=== PATIENT | male | born 1995 | race Caucasian/White ===

== ENCOUNTER 2020-07-30 07:45 | Emergency (ER) | payer BC, MEDICAID, SELFPAY ==
[2020-07-30 07:49] VITALS: PULSE 93; RESP 16; TEMP 36.6; O2SAT 98
--- NOTE | 2020-07-30 07:49 | CT_ITS ---
EXAMINATION: CT ABDOMEN AND PELVIS WITHOUT CONTRAST CLINICAL INFORMATION: Right flank pain. History of stones. COMPARISON: Previous CT of the abdomen and pelvis August 2017 TECHNIQUE: Multidetector volumetric imaging was performed from the superior aspect of the liver through the pubic symphysis. Sagittal and coronal reformatted images were obtained on the technologist's workstation. This CT examination was performed using dose optimization techniques as appropriate, variously including the following: *Automated exposure control *Adjustment of mA and/or kV according to patient size (this includes techniques or standardized protocols for targeted exams where dose is matched to indication/reason for exam; i.e. extremities or head) *Use of iterative reconstruction technique DLP: 409 mGy-cm FINDINGS: LUNG BASES: The visualized lung bases are unremarkable. LIVER, GALLBLADDER, AND BILIARY TREE: The liver is normal in size, shape, and attenuation. No focal hepatic lesion or biliary ductal dilatation is present. The gallbladder is unremarkable with no evidence of radiopaque gallstones, gallbladder wall thickening, or obvious pericholecystic inflammatory changes. PANCREAS: Unremarkable. SPLEEN: Unremarkable. ADRENAL GLANDS: Unremarkable. KIDNEYS AND URETERS: There is a 2 mm stone in the upper pole of the right kidney. The kidneys are otherwise normal. No hydronephrosis, ureteral dilatation or ureteral stone is seen. BLADDER: There is a small 2 mm calcification in the bladder along the left lateral posterior bladder wall axial image 86 series 3, coronal reconstructed image 41 and sagittal reconstructed image 41 this is new from previous exam. It is uncertain whether this could represent a small bladder stone. GASTROINTESTINAL TRACT: There is stool seen throughout the colon questionable for constipation. There are no dilated loops of bowel to suggest obstruction. The stomach and appendix are unremarkable. ABDOMINAL WALL: No significant hernia is appreciated. LYMPH NODES: Normal. VASCULAR: Unremarkable. PELVIC VISCERA: Unremarkable. OSSEOUS STRUCTURES: There is degenerative disc disease at L5-S1. CT/CT abdomen pelvis wo con IMPRESSION: Small nonobstructing right renal stone. Question small bladder stone. No hydronephrosis, ureteral dilatation or ureteral stone seen.
--- NOTE | 2020-07-30 07:57 | ED_ITS ---
HPI - Abdominal Pain General Chief Complaint: Abdominal Pain Stated Complaint: FLANK PAIN,? KIDNEY STONE FEELS THE SAME PER PT Time Seen by Provider: 07/30/20 07:48 Source: patient, EMS and old records reviewed Mode of arrival: EMS Limitations: no limitations History of Present Illness MD elicited complaint: flank pain Pertinent past history: kidney stones Onset (ago): hour(s) (3) Pain Consistency: constant Location: R flank Quality: stabbing Radiation: RLQ Migration to: no migration Exacerbating factors: vomiting and movement Relieving factors: nothing Context: history of similar episodes Associated symptoms: nausea and vomiting Related Data Previous Rx's Medication Instructions Recorded hydrocodone-acetaminophen 1 tab PO Q6H PRN #8 tab 07/30/20 ibuprofen 600 mg PO Q6H PRN #30 tab 07/30/20 ondansetron 4 mg PO Q8H PRN #20 tab 07/30/20 Allergies Allergy/AdvReac Type Severity Reaction Status Date / Time Sulfa (Sulfonamide Allergy Mild RASH Unverified 03/29/20 19:27 Antibiotics) [SULFA (SULFONAMIDE ANTIBIOTICS)] Review of Systems Review of Systems Constitutional : No Weight loss, No Fever, No Chills ENT/Mouth : No sore throat, No Rhinorrhea Eyes: No Swelling, No Redness Cardiovascular : No Chest Pain, No SOB, NoEdema Respiratory : No Cough, No Sputum, No Wheezing Gastrointestinal : Positive Nausea, Positive Vomiting, no Diarrhea, positive abdominal Pain, No Hematochezia, No Melena Genitourinary : pos Dysuria, No Urinary Frequency, No Hematuria, No Urgency Musculoskeletal : No joint pain, No Myalgias, No Joint Swelling Skin : No Skin Lesions, No rash Neuro : No Weakness, No Numbness, No Dizziness, No Headache Psych : No Anxiety/Panic, No Depression Heme/Lymph: No Bruising, No Lymphadenopathy Endocrine : No Polyuria, No Polydipsia All other systems reviewed and are negative. Physical Exam Vital Signs: Vital Signs: Last Vital Signs Temp 98.7 F 07/30/20 11:53 Pulse 54 07/30/20 11:53 Resp 16 07/30/20 11:53 BP 107/52 L 07/30/20 11:53 Pulse Ox 97 07/30/20 11:53 Body Mass Index 1.6 Appearance: Alert. Oriented X3. Tearful, crying, mild distress appears in pain Eyes: Pupils equal, round and reactive to light. ENT: Pharynx normal. Neck: Normal inspection. Neck supple. CVS: Normal heart rate and rhythm. Pulses normal. Respiratory: No respiratory distress. Breath sounds normal. Abdomen: Soft and moderate R sided abdominal pain Skin: Skin warm and diaphoretic. pale skin color. Normal skin turgor. Extremities: No lower extremity edema. No calf ttp Neuro: Oriented X 3. No motor deficit. No sensory deficit. Course Course Course Narrative: feels much better, passed stone, stable for DC MDM - Abdominal Pain MDM Narrative Medical decision making narrative: 24 yo male with hx of seizures, renal colic - here with R flank pain concerning for ureterolithiasis - at this time will need labs, CT scan, IVF, IV toradol and IV dilaudid for pain, dispo per results and findings. Lab Data Result diagrams: 07/30/20 07:59 07/30/20 09:54 Labs: Lab Results 07/30/20 07/30/20 07/30/20 Range/Units 07:59 07:59 09:54 WBC 10.7 (4.8-10.8) X10*3/uL RBC 5.28 (4.60-5.80) X10*6/uL Hgb 14.9 (14.0-18.0) g/dl Hct 43.6 (42-52) % MCV 82.6 (80-98) fL MCH 28.2 (27.0-33.0) pg MCHC 34.2 (31.0-36.0) g/dl RDW 12.9 (11.0-16.0) % Plt Count 200 (160-400) X10*3/uL MPV 9.4 (9.4-12.4) fL Immature Gran % (Auto) 0.2 (0.0-0.4) % Neut % (Auto) 79.6 H (45-73) % Lymph % (Auto) 12.3 L (20-40) % [place] % (Auto) 7.1 (2-11) % Eos % (Auto) 0.5 (0-4) % Baso % (Auto) 0.3 (0-2) % Lymph # (Auto) 1.3 (1.2-4.9) X10*3/uL [place] # (Auto) 0.8 (0.1-1.2) X10*3/uL Eos # (Auto) 0.1 (0.0-0.4) X10*3/uL Baso # (Auto) 0.0 (0.0-0.2) X10*3/uL Abs Immat Gran (auto) 0.02 (0.00-0.03) X10*3/uL Absolute Neuts (auto) 8.5 H (2.0-8.3) X10*3/uL Absolute Nucleated RBC 0.000 (0.0-0.012) X10*3/uL Nucleated RBC % (auto) 0.0 (0.0-0.2) /100WBC Sodium Cancelled 139 Potassium Cancelled 4.1 Chloride Cancelled 104 Carbon Dioxide Cancelled 27 Anion Gap Cancelled 12 BUN Cancelled 10 Creatinine Cancelled 0.80 Estim Creat Clear Calc Cancelled 9.8 Estimated GFR Cancelled > 60 Random Glucose Cancelled 93 Calcium Cancelled 9.0 Magnesium Cancelled 1.9 Total Bilirubin Cancelled 0.2 Direct Bilirubin Cancelled 0.2 AST Cancelled 21 ALT Cancelled 21 Alkaline Phosphatase Cancelled 61 Total Protein Cancelled 6.7 Albumin Cancelled 4.2 Lipase Cancelled 8 Urine Color Urine Appearance Urine pH (5.0-8.0) Ur Specific [place] (1.005-1.025) Urine Protein (NEG-TRACE) MG/DL Urine Glucose (UA) (NEG) MG/DL Urine Ketones (NEG) MG/DL Urine Blood (NEG) Urine Nitrite (NEG) Ur Leukocyte Esterase (NEG) 07/30/20 Range/Units 12:00 WBC (4.8-10.8) X10*3/uL RBC (4.60-5.80) X10*6/uL Hgb (14.0-18.0) g/dl Hct (42-52) % MCV (80-98) fL MCH (27.0-33.0) pg MCHC (31.0-36.0) g/dl RDW (11.0-16.0) % Plt Count (160-400) X10*3/uL MPV (9.4-12.4) fL Immature Gran % (Auto) (0.0-0.4) % Neut % (Auto) (45-73) % Lymph % (Auto) (20-40) % [place] % (Auto) (2-11) % Eos % (Auto) (0-4) % Baso % (Auto) (0-2) % Lymph # (Auto) (1.2-4.9) X10*3/uL [place] # (Auto) (0.1-1.2) X10*3/uL Eos # (Auto) (0.0-0.4) X10*3/uL Baso # (Auto) (0.0-0.2) X10*3/uL Abs Immat Gran (auto) (0.00-0.03) X10*3/uL Absolute Neuts (auto) (2.0-8.3) X10*3/uL Absolute Nucleated RBC (0.0-0.012) X10*3/uL Nucleated RBC % (auto) (0.0-0.2) /100WBC Sodium Potassium Chloride Carbon Dioxide Anion Gap BUN Creatinine Estim Creat Clear Calc Estimated GFR Random Glucose Calcium Magnesium Total Bilirubin Direct Bilirubin AST ALT Alkaline Phosphatase Total Protein Albumin Lipase Urine Color YELLOW Urine Appearance HAZY Urine pH 8.0 (5.0-8.0) Ur Specific [place] 1.020 (1.005-1.025) Urine Protein TRACE (NEG-TRACE) MG/DL Urine Glucose (UA) NEG (NEG) MG/DL Urine Ketones 40 (NEG) MG/DL Urine Blood 2+ H (NEG) Urine Nitrite NEG (NEG) Ur Leukocyte Esterase NEG (NEG) Discharge Plan Discharge Clinical Impression: Calculus of kidney Patient Disposition: Home, Self-Care Instructions: Kidney Stones (ED) Additional Instructions: return to ED for any worsening symptoms or concerns YOU PASSED A STONE IT IS IN YOUR BLADDER, THERE IS A ANOTHER SMALL STONE IN THE RIGHT KIDNEY THIS MAY CAUSE PAIN AND PASS IN THE FUTURE please follow up with your urologist as needed Prescriptions: New hydrocodone-acetaminophen 5-325 mg tablet 1 tab PO Q6H PRN (Reason: pain) Qty: 8 RF: 0 ibuprofen 600 mg tablet 600 mg PO Q6H PRN (Reason: pain) Qty: 30 RF: 0 ondansetron 4 mg tablet,disintegrating 4 mg PO Q8H PRN (Reason: nausea and vomiting) Qty: 20 RF: 0 PMFSH Past Medical History Attestation statement: The following information was validated with the patient. Medical History Kidney stones Social History Social History (Updated 07/30/20 @ 07:58 by Bette Reeves DO) Alcohol intake: never Smoking Status: Current every day smoker Use of substances other than those prescribed or required for medical reasons: No Advance Directives: No Advance Directives Information Provided: No
[2020-07-30 08:03] VITALS: RESP 16
[2020-07-30] MEDS: Ketorolac Tromethamine 30 MG/ML VIAL IVPUSH (08:03)
[2020-07-30] MEDS: HYDROmorphone HCl 1 MG/ML SYRINGE IVPUSH (08:03)
[2020-07-30] MEDS: ondansetron HCL 4 MG/2 ML VIAL IVPUSH (08:03)
[2020-07-30] MEDS: 0.9 % Sodium Chloride 1,000 ML 999 ML IVCONT (08:04)
[2020-07-30 08:07] LABS: MANUAL DIFF FLAG NO
[2020-07-30 08:15] LABS: Basophils Percent Auto 0.3 % (0-2); Eosinophils Absolute Auto 0.1 X10*3/uL (0.0-0.4); Eosinophils Percent Auto 0.5 % (0-4); Hematocrit 43.6 % (42-52); Hemoglobin 14.9 g/dl (14.0-18.0); Imm Gran Abs Auto 0.02 X10*3/uL (0.00-0.03); Imm Gran Pct Auto 0.2 % (0.0-0.4); Lymphocytes Absolute Auto 1.3 X10*3/uL (1.2-4.9); Lymphocytes Percent Auto 12.3 % (20-40); Mean Corpuscular HGB Conc 34.2 g/dl (31.0-36.0); Mean Corpuscular Hemoglobin 28.2 pg (27.0-33.0); Mean Corpuscular Volume 82.6 fL (80-98); Mean Platelet Volume 9.4 fL (9.4-12.4); Monocytes Absolute Auto 0.8 X10*3/uL (0.1-1.2); Monocytes Percent Auto 7.1 % (2-11); Neutrophils Absolute Auto 8.5 X10*3/uL (2.0-8.3); Neutrophils Percent Auto 79.6 % (45-73); Platelet Count 200 X10*3/uL (160-400); Red Blood Count 5.28 X10*6/uL (4.60-5.80); Red Cell Distribution Width 12.9 % (11.0-16.0); White Blood Count 10.7 X10*3/uL (4.8-10.8)
[2020-07-30 10:01] VITALS: BP 108/43; PULSE 72; RESP 16; TEMP 37.4; O2SAT 95
[2020-07-30 10:34] LABS: Alanine Aminotransferase 21 U/L (0-40); Albumin Level 4.2 g/dL (3.5-5.0); Alkaline Phosphatase 61 U/L (39-117); Anion Gap 12 (12-20); Aspartate Amino Transferase 21 U/L (5-37); Bilirubin Direct 0.2 mg/dL (0.0-0.5); Bilirubin Total 0.2 mg/dL (0.0-1.0); Blood Urea Nitrogen 10 mg/dL (9-16); Carbon Dioxide 27 mmol/L (22-29); Chloride 104 mmol/L (96-108); Creatinine Clr Calc Pharmacy 9.8; Estimated Glomerular Filt Rate > 60; Glucose Random 93 mg/dL (60-115); Lipase 8 U/L (8-78); Magnesium 1.9 mg/dL (1.6-2.6); Potassium 4.1 mmol/l (3.3-5.1); Sodium 139 mmol/L (135-145); Total Protein 6.7 g/dL (6.5-8.0)
[2020-07-30 11:53] VITALS: BP 107/52; PULSE 54; RESP 16; TEMP 37.1; O2SAT 97
[2020-07-30 12:00] VITALS: RESP 16
[2020-07-30 12:08] LABS: Glucose Urine UA NEG (NEG); Leukocyte Esterase Urine NEG (NEG); Nitrite Urine NEG (NEG); Urine Blood 2+ (NEG); Urine Ketones 40 MG/DL (NEG); Urine Protein TRACE MG/DL (NEG-TRACE)
[2020-07-30 12:10] LABS: Appearance Urine HAZY; Color Urine YELLOW
[2020-07-30 12:17] LABS: RBC Urine 30-49 /HPF (0)
[2020-07-30 12:18] LABS: Bacteria Urine TRACE /LPF; Mucus Urine 2+ /LPF; Squamous Epithelial Cell Urine 1+ /LPF; Triple Phosphate Crystal Urine 1+ /LPF
== END 2020-07-30 12:44 | disposition home or self-care (01) ==
PROVIDERS: Emergency Provider Emergency Medicine
DX: N20.0 Calculus of kidney (principal)
CPT/HCPCS: 36415; 74176; 80048; 80076; 81001; 83690; 83735; 85025; 96361; 96374; 96375; 99284; 99285; J1170; J1885; J2405

== ENCOUNTER 2020-08-16 06:28 | Emergency (ER) | payer BC, MEDICAID, SELFPAY ==
[2020-08-16 08:08] VITALS: BP 114/76; PULSE 80; RESP 16; TEMP 36.7; O2SAT 96; BMI 23.7
--- NOTE | 2020-08-16 09:49 | ED.BACK ---
HPI - Back Pain/Injury General Chief Complaint: Back Pain/Injury Stated Complaint: Abdominal Pain Time Seen by Provider: 08/16/20 09:48 Related Data Previous Rx's Medication Instructions Recorded hydrocodone-acetaminophen 1 tab PO Q6H PRN #8 tab 07/30/20 ibuprofen 600 mg PO Q6H PRN #30 tab 07/30/20 ondansetron 4 mg PO Q8H PRN #20 tab 07/30/20 Allergies Allergy/AdvReac Type Severity Reaction Status Date / Time Sulfa (Sulfonamide Allergy Mild RASH Verified 08/16/20 08:08 Antibiotics) [SULFA (SULFONAMIDE ANTIBIOTICS)] [facility] Past Medical History Medical History Kidney stones Social History Social History (Updated 07/30/20 @ 07:58 by Bette Reeves DO) Alcohol intake: never Smoking Status: Current every day smoker Use of substances other than those prescribed or required for medical reasons: No Advance Directives: No Advance Directives Information Provided: No Physical Exam Vital Signs: Vital Signs: Last Vital Signs Temp 98.1 F 08/16/20 08:08 Pulse 80 08/16/20 08:08 Resp 16 08/16/20 08:08 BP 114/76 08/16/20 08:08 Pulse Ox 96 08/16/20 08:08 Body Mass Index 23.7 Course Course Course Narrative: 0945-This is a rapid medical exam. 24 yo male with past medical history of renal colic here with right sided flank pain since 0500. Feels similar to previous stones. Ordered labs, UA. Deferred additional HPI, ROS and PE to primary provider . Discharge Plan Discharge Prescriptions: No Action hydrocodone-acetaminophen 5-325 mg tablet 1 tab PO Q6H PRN (Reason: pain) Qty: 8 RF: 0 ibuprofen 600 mg tablet 600 mg PO Q6H PRN (Reason: pain) Qty: 30 RF: 0 ondansetron 4 mg tablet,disintegrating 4 mg PO Q8H PRN (Reason: nausea and vomiting) Qty: 20 RF: 0
--- NOTE | 2020-08-16 10:32 | ED_ITS ---
HPI - General Adult General Chief complaint: Back Pain/Injury Stated complaint: Abdominal Pain Time Seen by Provider: 08/16/20 09:48 Source: patient and EMS Mode of arrival: EMS Limitations: no limitations History of Present Illness HPI narrative: 24-year-old male with history of kidney stone presented with abdominal pain similar to his kidney stone, patient is crying in bed patient is refusing to get an IV access, refusing to give blood, patient also refused physical exam, patient will leave unhappy plea, I spoke with the patient try to make him understand that it is important to get blood in order to get a d efinitive diagnosis and give medications through the IV patient is still refusing the care patient left without physical exam or complete evaluation. Related Data Previous Rx's Medication Instructions Recorded hydrocodone-acetaminophen 1 tab PO Q6H PRN #8 tab 07/30/20 ibuprofen 600 mg PO Q6H PRN #30 tab 07/30/20 ondansetron 4 mg PO Q8H PRN #20 tab 07/30/20 Allergies Allergy/AdvReac Type Severity Reaction Status Date / Time Sulfa (Sulfonamide Allergy Mild RASH Verified 08/16/20 08:08 Antibiotics) [SULFA (SULFONAMIDE ANTIBIOTICS)] Review of Systems Review of Systems: Patient refused physical exam and given history. [facility] Past Medical History Medical History Kidney stones Social History Social History (Updated 07/30/20 @ 07:58 by Bette Reeves DO) Alcohol intake: never Smoking Status: Current every day smoker Use of substances other than those prescribed or required for medical reasons: No Advance Directives: No Advance Directives Information Provided: No Physical Exam Vital Signs: Vital Signs: Last Vital Signs Temp 98.1 F 08/16/20 08:08 Pulse 80 08/16/20 08:08 Resp 16 08/16/20 08:08 BP 114/76 08/16/20 08:08 Pulse Ox 96 08/16/20 08:08 Body Mass Index 23.7 Vital signs have been reviewed as normal and appeared to be correct. Blood pressure normal. Heart rate normal. Respiration rate normal. Temperature normal. Oxygen saturation normal. Patient refused physical exam Course Course Course Narrative: Patient refused medical care today because he does not want to given blood or get an IV access, patient will walk out without complete evaluation and assessment. Discharge Plan Discharge Clinical Impression: Abdominal pain Patient Disposition: Left Without Being Seen Prescriptions: No Action hydrocodone-acetaminophen 5-325 mg tablet 1 tab PO Q6H PRN (Reason: pain) Qty: 8 RF: 0 ibuprofen 600 mg tablet 600 mg PO Q6H PRN (Reason: pain) Qty: 30 RF: 0 ondansetron 4 mg tablet,disintegrating 4 mg PO Q8H PRN (Reason: nausea and vomiting) Qty: 20 RF: 0
[2020-08-16 10:35] LABS: Glucose Urine UA NEG (NEG); Leukocyte Esterase Urine NEG (NEG); Nitrite Urine NEG (NEG); Specific Gravity - Urine 1.015 (1.005-1.025); Urine Blood NEG (NEG); Urine Ketones NEG (NEG); Urine Protein NEG (NEG-TRACE)
--- NOTE | 2020-08-16 10:35 | PC.NURSE ---
pt unhappy re: need for lab draws, requests iv and labs taken from hand, rn established iv access rt hand, 1 blue tube of blood obtained pt insisted iv be removed, pt adamant he does not want blood drawn, dr linares at bedside speaking with pt, decision to cancel iv and obtain remaining blood to be drawn by tech and use po fluids, pt becomes upset doesn't want blood drawn gathers belongings and leaves dept.
[2020-08-16 10:38] LABS: Appearance Urine HAZY; Color Urine YELLOW
== END 2020-08-16 11:11 | disposition left against medical advice (07) ==
PROVIDERS: Nurse Practitioner Family; Emergency Provider Emergency Medicine
DX: R10.9 Unspecified abdominal pain (principal); M54.5 Low back pain; F17.200 Nicotine dependence, unspecified, uncomplicated; Z71.6 Tobacco abuse counseling; Z79.899 Other long term (current) drug therapy
CPT/HCPCS: 36415; 81003; 99283

== ENCOUNTER 2023-09-10 16:55 | Emergency (ER) | payer BC, MEDICAID, SELFPAY ==
[2023-09-10 17:02] VITALS: BP 119/83; PULSE 103; RESP 18; TEMP 36.8; O2SAT 96; BMI 34.3
--- NOTE | 2023-09-10 17:02 | ED.GENADULT ---
HPI - General Adult General Chief complaint: GI Bleed Stated complaint: hemorrhoid Time Seen by Provider: 09/10/23 18:13 Source: patient Mode of arrival: ambulatory Limitations: no limitations History of Present Illness HPI narrative: 27-year-old male presents with concerns that his hemorrhoid maybe bleeding, patient reports he has had hemorrhoid for about a year, recently he has been slightly constipated and passing hard stool, straining has caused his hemorrhoidal bleed he thinks, he reports he got a little bit scared when he saw a lot of blood in the toilet seat earlier today. Patient does not have a bleeding disorder. Not on blood thinners. He reports at times the hemorrhoid is painful. Denies fevers, chills, numbness, tingling, headache, vision changes, dizziness, weakness, nausea, vomiting, abdominal pain, chest pain or shortness of breath. Related Data Previous Rx's Medication Instructions Recorded hydrocodone 5 mg-acetaminophen 325 1 tab PO Q6H PRN pain #8 tabs 07/30/20 mg tablet ibuprofen 600 mg tablet 600 mg PO Q6H PRN pain #30 tabs 07/30/20 ondansetron 4 mg disintegrating 4 mg PO Q8H PRN nausea and 07/30/20 tablet vomiting #20 tabs docusate sodium 100 mg capsule 100 mg PO BID #20 caps 09/10/23 (Colace) polyethylene glycol 3350 17 17 g PO BID #238 grams 09/10/23 gram/dose oral powder (Miralax) pramoxine 1 % topical foam 1 appl [place] BID #15 grams 09/10/23 (Proctofoam) sennosides 8.6 mg tablet (senna) 8.6 mg PO BEDTIME #14 tabs 09/10/23 Allergies Allergy/AdvReac Type Severity Reaction Status Date / Time Sulfa (Sulfonamide Allergy Mild RASH Verified 08/16/20 08:08 Antibiotics) [SULFA (SULFONAMIDE ANTIBIOTICS)] Review of Systems Review of Systems: Yes all other systems are reviewed and are negative PMFSH Past Medical History Attestation statement: The following information was validated with the patient. Source: old records reviewed and nursing notes reviewed Medical History Kidney stones Social History Social History Alcohol intake: never Advance Directives: No Advance Directives Information Provided: No Physical Exam ED Vital Signs: Vital Signs - 24 hr 09/10/23 17:02 Temperature 98.3 F Pulse Rate 103 H Respiratory Rate 18 Blood Pressure 119/83 Pulse Oximetry 96 Oxygen Delivery Method Room Air BMI result Body Mass Index 34.3 vss slightly tachycardic however anxious Appearance: Alert.? Oriented X3.? No acute distress.? Head: Normocephalic, atraumatic, no step-offs or deformities Eyes: Pupils equal, round and reactive to light.? ENT: Pharynx normal.? Neck: Normal inspection.? Neck supple.? CVS: Normal heart rate and rhythm.? Pulses normal.? Respiratory: No respiratory distress.? Breath sounds normal.? Sensitive exam: Tamanna tech at the bedside, normal rectal tone, external non thrombosed hemorrhoid that is slightly tender to the touch on exam. No signs of active bleeding at this time. Skin: Skin warm and dry.? Normal skin color.? Normal skin turgor.? Extremities: No lower extremity edema.? No calf ttp. 5/5 strength to bilateral upper and lower extremities Back: No midline tenderness, no C-spine tenderness, full range of motion, no CVA tenderness bilaterally Neuro: Oriented X 3.? No motor deficit.? No sensory deficit. CN 2-12 intact Course Course Course Narrative: This is a rapid medical exam: Additional HPI, ROS, PE not included below will be deferred to primary provider. Patient is a 27-year-old male presenting to the ED with complaint of rectal pain, has noted an external hemorrhoid for about 1 year, but for the past week has had increased bleeding. States blood is dripping into the toilet every time he uses the bathroom. Unable to visualize in triage due to privacy concerns. Plan: check CBC, exam deferred to primary provider Reevaluation(s) Reevaluation #1: Hemoglobin and hematocrit stable. Educated patient on diagnosis and treatment plan, answered all question, patient verbalizes understanding. At this time patient will be discharged home, advised to return with new or worsening symptoms. Educated on worrisome signs and symptoms and when to return. At this time I feel comfortable discharge home. Patient will call surgery tomorrow morning this hemorrhoid has been ongoing for year. Medical Decision Making Medical Decision Making [facility] Narrative: 27-year-old male presents with concerns that his heparin maybe bleeding he states he has had an external hemorrhoid for about a year. Intermittently bleeds. Physical exam significant for Tamanna giron at the bedside, normal rectal tone, external non thrombosed hemorrhoid that is slightly tender to the touch on exam. No signs of active bleeding at this time. This is likely a external bleeding hemorrhoid, no signs of strangulation or incarceration of the hemorrhoid. I do not suspect acute blood loss anemia. No signs of hypovolemic shock. I do not suspect acute lower GI bleed. Constipation could be causing hemorrhoid bleed. I do not suspect obstruction Plan at this time hemoglobin hematocrit drawn from triage. Pending labs. Differential Diagnosis Differential Diagnoses: The differential diagnosis associated with the presentation includes This is likely a external bleeding hemorrhoid, no signs of strangulation or incarceration of the hemorrhoid. I do not suspect acute blood loss anemia. No signs of hypovolemic shock. I do not suspect acute lower GI bleed. Constipation could be causing hemorrhoid bleed. Admission/Observation Consideration of admission/observation: Escalation of care including admission/observation considered No indication Lab Data MDM Lab Attestation statement: I reviewed the patient's lab results. 09/10/23 18:05 Labs: Lab Results 09/10/23 Range/Units 18:05 WBC 10.2 (4.8-10.8) X10*3/uL RBC 5.21 (4.60-5.80) X10*6/uL Hgb 14.8 (14.0-18.0) g/dl Hct 42.0 (42.0-52.0) % MCV 80.6 (80.0-98.0) fL MCH 28.4 (27.0-33.0) pg MCHC 35.2 (31.0-36.0) g/dl RDW 13.1 (11.0-16.0) % Plt Count 188 (160-400) X10*3/uL MPV 9.8 (9.4-12.4) fL Immature Gran % (Auto) 0.3 (0.0-0.4) % Neut % (Auto) 72.5 (45-73) % Lymph % (Auto) 20.8 (20-40) % [place] % (Auto) 5.2 (2-11) % Eos % (Auto) 0.8 (0-4) % Baso % (Auto) 0.4 (0-2) % Lymph # (Auto) 2.1 (1.2-4.9) X10*3/uL [place] # (Auto) 0.5 (0.1-1.2) X10*3/uL Eos # (Auto) 0.1 (0.0-0.4) X10*3/uL Baso # (Auto) 0.0 (0.0-0.2) X10*3/uL Abs Immat Gran (auto) 0.03 (0.00-0.03) X10*3/uL Absolute Neuts (auto) 7.4 (2.0-8.3) x10*3/uL Absolute Nucleated RBC 0.000 (0.0-0.012) X10*3/uL Nucleated RBC % (auto) 0.0 (0.0-0.2) /100WBC Tests considered The following testing was considered but not selected: no abdominal tenderness to palpation. No indication for abdominal skin. Unlikely lower GI bleed. No signs of bleeding on exam. No indication for further imaging or testing. Stable hemoglobin and hematocrit. Prescription Management I considered prescription management with: Other (Proctofoam) Chronic Conditions Patient?s care impacted by: Other Kidney stone Discharge Plan Discharge Clinical Impression: Hemorrhoids, Constipation Patient Disposition: Home, Self-Care Instructions: Hemorrhoids (ED), Sitz Bath (DC), Hemorrhoidectomy (DC) Additional Instructions: Take your medications as prescribed. If you were prescribed antibiotics today, it is important that you take your medication to their entirety, do not skip any doses, do not finish them early. Follow-up with your primary care provider this week. Return to the emergency department with new or worsening symptoms. Such as fevers, chills, chest pain, shortness of breath, nausea, vomiting, dizziness, headache, vision changes, lethargy In case of emergency call 911 Return with increased bleeding, worsening pain, fatigue, malaise, dizziness, weakness. Or any new or worsening symptoms. Please follow-up with general surgery Prescriptions: New pramoxine [Proctofoam] 1 % foam 1 appl [place] BID Qty: 15 0RF sennosides [senna] 8.6 mg tablet 8.6 mg PO BEDTIME Qty: 14 0RF docusate sodium [Colace] 100 mg capsule 100 mg PO BID Qty: 20 0RF polyethylene glycol 3350 [Miralax] 17 gram/dose powder 17 g PO BID Qty: 238 0RF No Action hydrocodone-acetaminophen 5-325 mg tablet 1 tab PO Q6H PRN (Reason: pain) Qty: 8 0RF ibuprofen 600 mg tablet 600 mg PO Q6H PRN (Reason: pain) Qty: 30 0RF ondansetron 4 mg tablet,disintegrating 4 mg PO Q8H PRN (Reason: nausea and vomiting) Qty: 20 0RF [place] [facility] [place] Group] - 1 day Physician,None [Primary Care Provider] - 2 days
[2023-09-10 18:15] LABS: MANUAL DIFF FLAG NO
[2023-09-10 18:25] LABS: Basophils Percent Auto 0.4 % (0-2); Eosinophils Absolute Auto 0.1 X10*3/uL (0.0-0.4); Eosinophils Percent Auto 0.8 % (0-4); Hemoglobin 14.8 g/dl (14.0-18.0); Imm Gran Abs Auto 0.03 X10*3/uL (0.00-0.03); Imm Gran Pct Auto 0.3 % (0.0-0.4); Lymphocytes Absolute Auto 2.1 X10*3/uL (1.2-4.9); Lymphocytes Percent Auto 20.8 % (20-40); Mean Corpuscular HGB Conc 35.2 g/dl (31.0-36.0); Mean Corpuscular Hemoglobin 28.4 pg (27.0-33.0); Mean Corpuscular Volume 80.6 fL (80.0-98.0); Mean Platelet Volume 9.8 fL (9.4-12.4); Monocytes Absolute Auto 0.5 X10*3/uL (0.1-1.2); Monocytes Percent Auto 5.2 % (2-11); Neutrophils Absolute Auto 7.4 x10*3/uL (2.0-8.3); Neutrophils Percent Auto 72.5 % (45-73); Platelet Count 188 X10*3/uL (160-400); Red Blood Count 5.21 X10*6/uL (4.60-5.80); Red Cell Distribution Width 13.1 % (11.0-16.0); White Blood Count 10.2 X10*3/uL (4.8-10.8)
== END 2023-09-10 18:47 | disposition home or self-care (01) ==
PROVIDERS: Registered Nurse Emergency; Emergency Provider Emergency Medicine
DX: K64.9 Unspecified hemorrhoids (principal); K59.00 Constipation, unspecified; Z79.899 Other long term (current) drug therapy
CPT/HCPCS: 36415; 85025; 99282; 99283

== ENCOUNTER 2023-09-14 14:30 | Outpatient (AMB) | payer MEDICAID, SELFPAY ==
--- NOTE | 2023-09-14 14:31 | A.OFFVIS_ITS ---
Intake Intake Visit Reasons: painful Hemorrhoids Intake Note: Patient here referred by ER. Was seen for painful hemorrhoids on 09-10-23. Patient c/o: hemorrhoid bleeding. Rx's for colace, senna, miralax. Proctofoam not approved. Senior Customer Service Representative Required: No Accompanied by: Self / Same As Patient Allergies Sulfa (Sulfonamide Antibiotics) [SULFA (SULFONAMIDE ANTIBIOTICS)] Allergy (Mild, Verified 09/14/23 14:34) RASH HPI HPI Comments History of Present Illness Details Patient presents with his and child. He has had over 1 year history of symptomatic external hemorrhoids. Complaints of pain and bleeding and discomfort. He recently seen in the emergency department for hemorrhoidal symptoms and presents here for further evaluation. Patient has history of constipation. Does occasional heavy lifting. He denies any anal receptive practices. Chart was reviewed and patient evaluate [facility] Medical History Kidney stones Social History Alcohol intake: never Physical Exam GI Other: Patient has a large partially thrombosed/bleeding external hemorrhoid. Rectal exam was deferred secondary to patient's discomfort. Abdomen soft, benign Office Procedures Excision Details: Risks, benefits, alternatives of hemorrhoidectomy were reviewed the patient included but not limited to bleeding, infection, recurrence, numbness, pain, scarring, incontinence and the patient wished to proceed. All questions answered. After appropriate positioning, patient underwent 1% lidocaine and Betadine prep uneventful external hemorrhoidectomy of symptomatic external hemorrhoid. Specimen sent to pathology. Wound was secured hemostasis, and dressing applied. Patient tolerated procedure well. 03933-qexfq/arms/legs 2.1-3cm Procedure code (CPT) selection complete Office Meds lidocaine 1 %-epinephrine 1:100,000 injection solution Performing Provider: Carlos Harris MD [place] [facility] [place] [facility] Administered by: Carlos Harris MD on 09/14/23 14:54 Dose Route Admin Location Dispensed Lot Number Expiration Date [facility] Saw Feeder 10 mL Infiltration 10 mL Assessment & Plan Assessment & Plan (1) External hemorrhoid: Code(s): K64.4 - Residual hemorrhoidal skin tags Plan: Patient and have been given local instructions including Sitz baths, stool softener recommendations, analgesics, and patient will see me as directed or p.r.n. Orders: Orders AMB Excision Today K64.4 - Residual hemorrhoidal skin tags Coding Level of Care Code New Pt Level 5 (67019) Diagnoses External hemorrhoid K64.4 CPT Codes Trunk/Arms/Legs - CPT: 22150-zkagc/arms/legs 2.1-3cm ([id number])
== END 2023-09-14 15:10 | disposition home or self-care (01) ==
PROVIDERS: Visit Provider Surgery
DX: K64.4 Residual hemorrhoidal skin tags (principal)
CPT/HCPCS: 46220; 99204

== ENCOUNTER 2023-09-14 14:30 | Outpatient (REF) | payer MEDICAID, SELFPAY | END 2023-09-14 14:31 | disposition home or self-care (01) | LOC: HO.LNP 14:30 | PROVIDERS: Visit Provider Surgery | DX: K64.4 Residual hemorrhoidal skin tags (principal) | CPT/HCPCS: 46220; 88304 ==

== ENCOUNTER 2024-02-12 10:24 | Emergency (ER) | payer OTHER, SELFPAY ==
--- NOTE | ~2024-02-12 | CT_ITS ---
EXAMINATION: CT ABDOMEN AND PELVIS WITH CONTRAST CLINICAL INFORMATION: Nausea and vomiting. COMPARISON: 07/30/2020 TECHNIQUE: Multidetector volumetric images were obtained from the superior aspect of the liver through the pubic symphysis following administration 85 mL of Omnipaque 350 intravenous contrast. Sagittal and coronal reformatted images were obtained on the technologist's workstation. Oral contrast: No This CT examination was performed using dose optimization techniques as appropriate, variously including the following: *Automated exposure control *Adjustment of mA and/or kV according to patient size (this includes techniques or standardized protocols for targeted exams where dose is matched to indication/reason for exam; i.e. extremities or head) *Use of iterative reconstruction technique DLP: 818 mGy-cm FINDINGS: LUNG BASES: No pleural or pericardial effusion. LIVER, GALLBLADDER, AND BILIARY TREE: The liver is normal in size and contour. No focal hepatic lesion or biliary ductal dilatation is present. The gallbladder is unremarkable with no evidence of radiopaque gallstones, gallbladder wall thickening, or obvious pericholecystic inflammatory changes. PANCREAS: Unremarkable. SPLEEN: Unremarkable. ADRENAL GLANDS: Unremarkable. KIDNEYS AND URETERS: The kidneys are normal in size, shape, and attenuation. No hydronephrosis. No perinephric stranding. BLADDER: Underdistended. GASTROINTESTINAL TRACT: Small and large bowel loops are of normal caliber. No small bowel obstruction. ABDOMINAL WALL: No significant hernia is appreciated. LYMPH NODES: Aortocaval lymph node measures 0.8 x 1.1 cm. Portacaval lymph node measures 1.5 x 2.2 cm. VASCULAR: Normal caliber abdominal aorta. PELVIC VISCERA: Unremarkable. OSSEOUS STRUCTURES: No destructive bone lesions. CT/CT abdomen pelvis w IV con IMPRESSION: No acute abnormality in the abdomen or pelvis.
[2024-02-12 10:39] VITALS: BP 121/87; PULSE 76; RESP 16; TEMP 36.4; O2SAT 96; BMI 33.4
[2024-02-12 11:09] LABS: MANUAL DIFF FLAG NO
[2024-02-12 11:13] LABS: Basophils Percent Auto 0.5 % (0-2); Eosinophils Absolute Auto 0.1 X10*3/uL (0.0-0.4); Eosinophils Percent Auto 0.8 % (0-4); Hematocrit 42.5 % (42.0-52.0); Hemoglobin 14.8 g/dl (14.0-18.0); Imm Gran Abs Auto 0.03 X10*3/uL (0.00-0.03); Imm Gran Pct Auto 0.4 % (0.0-0.4); Lymphocytes Absolute Auto 2.4 X10*3/uL (1.2-4.9); Lymphocytes Percent Auto 30.1 % (20-40); Mean Corpuscular HGB Conc 34.8 g/dl (31.0-36.0); Mean Corpuscular Hemoglobin 27.9 pg (27.0-33.0); Mean Platelet Volume 9.5 fL (9.4-12.4); Monocytes Absolute Auto 0.6 X10*3/uL (0.1-1.2); Monocytes Percent Auto 7.1 % (2-11); Neutrophils Absolute Auto 4.8 x10*3/uL (2.0-8.3); Neutrophils Percent Auto 61.1 % (45-73); Platelet Count 220 X10*3/uL (160-400); Red Blood Count 5.31 X10*6/uL (4.60-5.80); Red Cell Distribution Width 13.2 % (11.0-16.0); White Blood Count 7.9 X10*3/uL (4.8-10.8)
[2024-02-12 11:28] LABS: Alanine Aminotransferase 37 U/L (0-40); Albumin Level 4.9 g/dL (3.5-5.0); Alkaline Phosphatase 76 U/L (39-117); Anion Gap 13 (12-20); Aspartate Amino Transferase 32 U/L (5-37); Bilirubin Total 0.5 mg/dL (0.0-1.0); Blood Urea Nitrogen 13 mg/dL (9-16); Calcium 10.5 mg/dL (8.4-10.2); Carbon Dioxide 25 mmol/L (22-29); Chloride 105 mmol/L (96-108); Creatinine Clr Calc Pharmacy 166.5; Estimated Glomerular Filt Rate > 60; Glucose Random 100 mg/dL (60-115); Lipase 10 U/L (8-78); Potassium 4.3 mmol/L (3.3-5.1); Sodium 139 mmol/L (135-145); Total Protein 8.5 g/dL (6.5-8.0)
--- NOTE | 2024-02-12 11:36 | ED_ITS ---
HPI - Nausea/Vomiting/Diarrhea General Chief complaint: Nausea/Vomiting/Diarrhea Stated complaint: vomiting x 2days nausea sent in from Urgent Care Time Seen by Provider: 02/12/24 11:23 Source: patient Mode of arrival: ambulatory Limitations: no limitations History of Present Illness HPI Narrative: Patient is a 28-year-old male who presents to the emergency department for evaluation. He reports since yesterday morning he has been experiencing nausea vomiting and watery diarrhea. He has been unable to tolerate oral intake and was sent home from work. He states that he presented to an urgent care, on their examination when they were pressing on his lower abdomen he felt like it caused a ?spasm?. Was told to come to emergency department to rule out appendicitis. He states he does not feel as though he has pain in the lower abdomen, aside from when they were pressing that area. He states that he has a history of opiate use disorder, he is on methadone but states he has been for years sober. He denies concern for withdrawals. Denies any known sick contacts. Denies any gastrointestinal history or recent antibiotic usage, no hematochezia or melena. No fevers or chills. No back or flank pain. No genitourinary symptoms. Related Data Previous Rx's ?Medication ?Instructions ?Recorded ibuprofen 600 mg tablet 600 mg PO Q6H PRN pain #30 tabs 07/30/20 ondansetron 4 mg disintegrating 4 mg PO Q8H PRN nausea and 07/30/20 tablet vomiting #20 tabs docusate sodium 100 mg capsule 100 mg PO BID #20 caps 09/10/23 (Colace) polyethylene glycol 3350 17 17 g PO BID #238 grams 09/10/23 gram/dose oral powder (Miralax) pramoxine 1 % topical foam 1 appl [place] BID #15 grams 09/10/23 (Proctofoam) sennosides 8.6 mg tablet (senna) 8.6 mg PO BEDTIME #14 tabs 09/10/23 hydrocodone 5 mg-acetaminophen 325 1 tab PO Q4-6H PRN pain #30 tabs 09/14/23 mg tablet ondansetron 4 mg disintegrating 4 mg PO Q8H PRN nausea and 02/12/24 tablet vomiting #14 tabs Allergies Allergy/AdvReac Type Severity Reaction Status Date / Time Sulfa (Sulfonamide Allergy Mild RASH Verified 02/12/24 10:44 Antibiotics) [SULFA (SULFONAMIDE ANTIBIOTICS)] Review of Systems 2 Review of Systems: Yes all other systems are reviewed and are negative [facility] Past Medical History Attestation statement: The following information was validated with the patient. Source: old records reviewed Medical History Kidney stones Social History Social History Alcohol intake: never Smoked in Last 30 Days: Yes Use of substances other than those prescribed or required for medical reasons: Yes Substance Use Type: Marijuana Advance Directives: No Advance Directives Information Provided: Yes Physical Exam 2 Vital Signs: Vital Signs: Last Vital Signs Temp 97.6 F 02/12/24 10:39 Pulse 76 02/12/24 10:39 Resp 16 02/12/24 10:39 BP 121/87 02/12/24 10:39 Pulse Ox 96 02/12/24 10:39 O2 Del Method Room Air 02/12/24 10:39 BMI result Body Mass Index 33.4 Appearance: Alert.?Oriented to person, place and time. No acute distress.?Normal affect. Eyes: Pupils equal, round and reactive to light.? ENT: Pharynx normal.?? Neck: Normal inspection.? Neck supple.?? CVS: Heart sounds normal. Normal heart rate and rhythm.? Pulses normal.?? Respiratory: No respiratory distress.? Lung sounds clear to auscultation bilaterally?? Abdomen: Soft with tenderness upon palpation in the right lower quadrant and left lower quadrant. No rebound tenderness. No rigidity. No guarding. No CVA tenderness. Normoactive bowel sounds. No pulsatile mass.?? Skin: Skin warm and dry.? Normal skin color.? Extremities: No lower extremity edema.? Neuro: Moves all extremities spontaneously. Sensation intact bilaterally. Ambulates with normal steady gait. Course Reevaluation(s) Reevaluation #1: CT of the abdomen and pelvis without acute abnormality, suspect that the outpatient cyclic due to muscular strain with vomiting. Received IV fluids and Zofran IV with improvement in nausea. Gastroenteritis, P.O. trial was successful, no vomiting. At this time feel he is stable for discharge home, outpatient follow-up with primary care provider. Discussed Zofran as needed for nausea/vomiting, bland diet and worrisome signs and symptoms that would warrant re-evaluation in the emergency department. Medications Administered Discontinued Medications Generic Name Dose Route Start Last Admin Trade Name Cassie PRN Reason Stop Dose Admin Sodium Chloride 1,000 mls @ 999 mls/hr 02/12/24 11:45 02/12/24 13:30 Ns IV 02/12/24 12:45 Infused .Q1H1M KONSTANTIN Infusion Iohexol 100 ml 02/12/24 12:32 02/12/24 12:32 Iohexol 350 Mg/Ml 100 Ml Infus..Btl IV 02/12/24 12:33 85 ml ONCE ONE Administration Ondansetron HCl 4 mg 02/12/24 11:31 02/12/24 12:03 Ondansetron Hcl 4 Mg/2 Ml Vial IVPUSH 02/12/24 11:32 4 mg ONCE ONE Administration Medical Decision Making Medical Decision Making MDM Narrative: Patient is a 28-year-old male past medical history of nephrolithiasis, opioid use disorder on methadone who presents emergency department for evaluation of nausea vomiting watery diarrhea and inability to tolerate oral intake. Overall he appears well, nontoxic, afebrile. He is without tachycardia tachypnea. He denies abdominal pain however on examination he does have tenderness upon palpation diffusely across the lower abdomen. No rebound tenderness. Will obtain CBC to evaluate for leukocytosis/ anemia, CMP and lipase to evaluate for abnormal electrolytes /abnormal renal function/ abnormal hepatic/biliary function, CT of the abdomen and pelvis and Urinalysis. Differential Diagnosis Differential Diagnoses: The differential diagnosis associated with the presentation includes (Gastroenteritis, diverticulitis, appendicitis, nephrolithiasis, obstructive calculi, hydronephrosis, UTI, cholecystitis) Admission/Observation Consideration of admission/observation: Escalation of care including admission/observation considered Lab Data MDM Lab Attestation statement: I reviewed the patient's lab results. CBC is without leukocytosis anemia or thrombocytopenia. No electrolyte derangement. No RAMESH. Lipase within normal range. 02/12/24 11:05 02/12/24 11:05 Labs: Lab Results 02/12/24 02/12/24 Range/Units 11:05 11:38 WBC 7.9 (4.8-10.8) X10*3/uL RBC 5.31 (4.60-5.80) X10*6/uL Hgb 14.8 (14.0-18.0) g/dl Hct 42.5 (42.0-52.0) % MCV 80.0 (80.0-98.0) fL MCH 27.9 (27.0-33.0) pg MCHC 34.8 (31.0-36.0) g/dl RDW 13.2 (11.0-16.0) % Plt Count 220 (160-400) X10*3/uL MPV 9.5 (9.4-12.4) fL Immature Gran % (Auto) 0.4 (0.0-0.4) % Neut % (Auto) 61.1 (45-73) % Lymph % (Auto) 30.1 (20-40) % Turner % (Auto) 7.1 (2-11) % Eos % (Auto) 0.8 (0-4) % Baso % (Auto) 0.5 (0-2) % Lymph # (Auto) 2.4 (1.2-4.9) X10*3/uL Turner # (Auto) 0.6 (0.1-1.2) X10*3/uL Eos # (Auto) 0.1 (0.0-0.4) X10*3/uL Baso # (Auto) 0.0 (0.0-0.2) X10*3/uL Abs Immat Gran (auto) 0.03 (0.00-0.03) X10*3/uL Absolute Neuts (auto) 4.8 (2.0-8.3) x10*3/uL Absolute Nucleated RBC 0.000 (0.0-0.012) X10*3/uL Nucleated RBC % (auto) 0.0 (0.0-0.2) /100WBC Sodium 139 (135-145) mmol/L Potassium 4.3 (3.3-5.1) mmol/L Chloride 105 (96-108) mmol/L Carbon Dioxide 25 (22-29) mmol/L Anion Gap 13 (12-20) BUN 13 (9-16) mg/dL Creatinine 0.82 (0.5-1.4) mg/dL Estim Creat Clear Calc 166.5 Estimated GFR > 60 Random Glucose 100 (60-115) mg/dL Calcium 10.5 H D (8.4-10.2) mg/dL Total Bilirubin 0.5 (0.0-1.0) mg/dL AST 32 (5-37) U/L ALT 37 (0-40) U/L Alkaline Phosphatase 76 (39-117) U/L Total Protein 8.5 H (6.5-8.0) g/dL Albumin 4.9 (3.5-5.0) g/dL Lipase 10 (8-78) U/L Urine Color Yellow Urine Appearance Clear Urine pH 6.5 (5.0-9.0) Ur Specific [place] 1.025 (1.005-1.025) Urine Protein Negative (Neg-Trace) mg/dL Urine Glucose (UA) Negative (Negative) mg/dL Urine Ketones Negative (Negative) mg/dL Urine Blood Negative (Negative) Urine Nitrite Negative (Negative) Ur Leukocyte Esterase Negative (Negative) Radiology Impression Discussion of test interpretation with radiology: I have reviewed the radiologist's reading. Radiologist Impression: CT/CT abdomen pelvis w IV con IMPRESSION: No acute abnormality in the abdomen or pelvis. External Record Review External record reviewed: Outpatient record Discharge Plan Discharge Clinical Impression: Gastroenteritis Patient Disposition: Home, Self-Care Instructions: Gastroenteritis (ED) Additional Instructions: Introduce a bland diet including crackers, bananas, rice, soup, toast, and boiled vegetables. This may progress to plain baked or boiled chicken or turkey. Avoid dairy products or foods high in fat or grease. Be sure to stay well hydrated and drink plenty of fluids. Take Zofran as needed for nausea/vomiting. Prescriptions: New ondansetron 4 mg tablet,disintegrating 4 mg PO Q8H PRN (Reason: nausea and vomiting) Qty: 14 0RF No Action ibuprofen 600 mg tablet 600 mg PO Q6H PRN (Reason: pain) Qty: 30 0RF ondansetron 4 mg tablet,disintegrating 4 mg PO Q8H PRN (Reason: nausea and vomiting) Qty: 20 0RF pramoxine [Proctofoam] 1 % foam 1 appl [place] BID Qty: 15 0RF sennosides [senna] 8.6 mg tablet 8.6 mg PO BEDTIME Qty: 14 0RF docusate sodium [Colace] 100 mg capsule 100 mg PO BID Qty: 20 0RF polyethylene glycol 3350 [Miralax] 17 gram/dose powder 17 g PO BID Qty: 238 0RF hydrocodone-acetaminophen 5-325 mg tablet 1 tab PO Q4-6H PRN (Reason: pain) Qty: 30 0RF Rx Instructions: Partial Fill upon patient request. Referrals: Physician,None [Primary Care Provider] - Stand Alone Forms: Work/School Release Print Language: Korean
[2024-02-12 11:44] LABS: Appearance Urine Clear; Color Urine Yellow; Glucose Urine UA Negative (Negative); Leukocyte Esterase Urine Negative (Negative); Nitrite Urine Negative (Negative); PH 6.5 (5.0-9.0); Specific Gravity - Urine 1.025 (1.005-1.025); Urine Blood Negative (Negative); Urine Ketones Negative (Negative); Urine Protein Negative (Neg-Trace)
--- NOTE | 2024-02-12 11:56 | PC.NURSE ---
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
[2024-02-12] MEDS: ondansetron HCL 4 MG/2 ML VIAL IVPUSH (12:03)
[2024-02-12] MEDS: 0.9 % Sodium Chloride 1,000 ML 999 ML IV (12:04)
--- NOTE | 2024-02-12 12:05 | PC.NURSE ---
pt a&ox3, iv inserted into wrist area- 22g was obtainable but difficult to get. pt tearful but tolerated-pt states he gets triggered by sticks for labs or IVs. IVF started per order, pt medicated for nausea, pt states he doesnt have actual pain- states he has an uncomfortable feeling but not actual pain. pt awaiting radiology, call mancini within reach, will continue to monitor
--- NOTE | 2024-02-12 12:25 | PC.NURSE ---
pt to ct scan
[2024-02-12] MEDS: iohexoL 350 MG/ML 100 ML INFUS..BTL IV (12:32)
--- NOTE | 2024-02-12 14:39 | PC.NURSE ---
pt attempting PO challange per request of provider
[2024-02-12 15:26] VITALS: BP 123/88; PULSE 72; RESP 18; TEMP 36.7; O2SAT 97
== END 2024-02-12 15:27 | disposition home or self-care (01) ==
PROVIDERS: Emergency Provider Student in an Organized Health Care Education/Training Program
DX: K52.9 Noninfective gastroenteritis and colitis, unspecified (principal); R11.2 Nausea with vomiting, unspecified
CPT/HCPCS: 36415; 74177; 80053; 81003; 83690; 85025; 96361; 96374; 99284; J2405; Q9967

== ENCOUNTER 2024-03-18 05:59 | Emergency (ER) | payer OTHER, SELFPAY ==
[2024-03-18] VITALS (8 sets, daily range): BP systolic 109–129; BP diastolic 46–87; PULSE 46–75; RESP 14–20; TEMP 36.1–36.8; O2SAT 95–99; BMI 34.9
[2024-03-18 06:50] LABS: MANUAL DIFF FLAG NO
[2024-03-18 06:51] LABS: Basophils Percent Auto 0.5 % (0-2); Eosinophils Absolute Auto 0.1 X10*3/uL (0.0-0.4); Eosinophils Percent Auto 1.4 % (0-4); Hematocrit 41.6 % (42.0-52.0); Hemoglobin 14.3 g/dl (14.0-18.0); Imm Gran Abs Auto 0.02 X10*3/uL (0.00-0.03); Imm Gran Pct Auto 0.3 % (0.0-0.4); Lymphocytes Absolute Auto 2.2 X10*3/uL (1.2-4.9); Lymphocytes Percent Auto 33.2 % (20-40); Mean Corpuscular HGB Conc 34.4 g/dl (31.0-36.0); Mean Corpuscular Hemoglobin 27.9 pg (27.0-33.0); Mean Corpuscular Volume 81.1 fL (80.0-98.0); Mean Platelet Volume 9.4 fL (9.4-12.4); Monocytes Absolute Auto 0.5 X10*3/uL (0.1-1.2); Monocytes Percent Auto 7.4 % (2-11); Neutrophils Absolute Auto 3.8 x10*3/uL (2.0-8.3); Neutrophils Percent Auto 57.2 % (45-73); Platelet Count 185 X10*3/uL (160-400); Red Blood Count 5.13 X10*6/uL (4.60-5.80); Red Cell Distribution Width 12.7 % (11.0-16.0); White Blood Count 6.6 X10*3/uL (4.8-10.8)
[2024-03-18 07:26] LABS: Influenza A PCR NEGATIVE (Negative); Influenza B PCR NEGATIVE (Negative); Resp Syncy Virus RNA Qual PCR NEGATIVE (Negative); SARS COV2 PCR INHOUSE NEGATIVE (Negative)
[2024-03-18 07:28] LABS: Alanine Aminotransferase 27 U/L (0-40); Albumin Level 4.5 g/dL (3.5-5.0); Alkaline Phosphatase 80 U/L (39-117); Anion Gap 15 (12-20); Aspartate Amino Transferase 31 U/L (5-37); Bilirubin Total 0.4 mg/dL (0.0-1.0); Blood Urea Nitrogen 14 mg/dL (9-16); Calcium 9.9 mg/dL (8.4-10.2); Carbon Dioxide 26 mmol/L (22-29); Chloride 105 mmol/L (96-108); Creatinine Clr Calc Pharmacy 140.9; Estimated Glomerular Filt Rate > 60; Glucose Random 98 mg/dL (60-115); Lipase 14 U/L (8-78); Potassium 4.8 mmol/L (3.3-5.1); Sodium 141 mmol/L (135-145); Total Protein 8.1 g/dL (6.5-8.0)
--- NOTE | 2024-03-18 07:54 | ED_ITS ---
HPI - Nausea/Vomiting/Diarrhea General Chief complaint: Nausea/Vomiting/Diarrhea Stated complaint: Vomiting Time Seen by Provider: 03/18/24 07:40 Source: patient Mode of arrival: EMS Limitations: no limitations History of Present Illness ED Provider: Dr. Gurwinder Adams HPI Narrative: 28-year-old male history of opiate use disorder on methadone who presents emergency department for evaluation of nausea vomiting and diarrhea for 4 days. Patient states that he has recurrent episodes of these symptoms. He was last seen here 02/12/2024 had a negative laboratory workup but a negative CT scan of the abdomen pelvis. Patient states for the past 4 days he has had lower abdominal pain which she states is secondary to his nausea. Patient has had constant nausea and vomiting he has not been able to eat or drink. He did go to an urgent care yesterday and was given Zofran but he states that this only helped for a brief period of time. He states this morning he continued to have vomiting and abdominal pain so she called an ambulance and came to the emergency department. Patient states that he had 2-3 loose, watery diarrheal stools with no blood in the stool. He states he has had no diarrhea today but he has had no food or fluid intake in the last 24 hours. He denied fever, chills, chest pain, shortness of breath, frequency, urgency or dysuria. He has not noticed any blood in his stools or dark tarry stools. Patient states that he does use marijuana vape pen 2 to 3 times a day and uses marijuana every other day. Related Data Previous Rx's ?Medication ?Instructions ?Recorded ibuprofen 600 mg tablet 600 mg PO Q6H PRN pain #30 tabs 07/30/20 ondansetron 4 mg disintegrating 4 mg PO Q8H PRN nausea and 07/30/20 tablet vomiting #20 tabs docusate sodium 100 mg capsule 100 mg PO BID #20 caps 09/10/23 (Colace) polyethylene glycol 3350 17 17 g PO BID #238 grams 09/10/23 gram/dose oral powder (Miralax) pramoxine 1 % topical foam 1 appl ME BID #15 grams 09/10/23 (Proctofoam) sennosides 8.6 mg tablet (senna) 8.6 mg PO BEDTIME #14 tabs 09/10/23 hydrocodone 5 mg-acetaminophen 325 1 tab PO Q4-6H PRN pain #30 tabs 09/14/23 mg tablet ondansetron 4 mg disintegrating 4 mg PO Q8H PRN nausea and 02/12/24 tablet vomiting #14 tabs diphenhydramine HCl 25 mg capsule 50 mg (2 x 25 mg) PO Q6H PRN 03/18/24 headache, nausea, vomiting #20 caps metoclopramide HCl 10 mg tablet 10 mg PO Q6H PRN nausea and 03/18/24 (Reglan) vomiting #14 tabs omeprazole 20 mg capsule,delayed 20 mg PO DAILY 30 days #30 caps 03/18/24 release Allergies Allergy/AdvReac Type Severity Reaction Status Date / Time Sulfa (Sulfonamide Allergy Mild RASH Verified 03/18/24 06:12 Antibiotics) [SULFA (SULFONAMIDE ANTIBIOTICS)] Review of Systems 2 Review of Systems: Yes all other systems are reviewed and are negative [facility] Past Medical History [facility] Narrative: Social history: Patient denies tobacco and alcohol use. He smokes marijuana every other day at least 2-3 times. He uses a vape pen. Medical History Kidney stones Social History Social History Alcohol intake: never Smoked in Last 30 Days: No Use of substances other than those prescribed or required for medical reasons: Yes Substance Use Type: Marijuana Substance Use Frequency: Weekly Last Used Substance: Days (ago) Advance Directives: No Advance Directives Information Provided: No Physical Exam 2 Vital Signs: Vital Signs: Last Vital Signs Temp 97 F 03/18/24 11:02 Pulse 53 03/18/24 14:17 Resp 16 03/18/24 14:17 BP 113/71 03/18/24 14:17 Pulse Ox 96 03/18/24 14:17 O2 Del Method Room Air 03/18/24 14:17 BMI result Body Mass Index 34.9 Vital signs were normal Exam: General: Awake, alert in no distress Head: Normocephalic, atraumatic EENT: PERRL, Lids normal, sclera normal, conjunctiva normal, nose normal , ears normal, throat without erythema or exudates Neck: Supple, no adenopathy Lung: breath sounds symmetric, no wheezing, rales or rhonchi Chest: symmetric movement, nontender Heart: regular rate and rhythm, normal S1, S2 no murmurs or rubs Abdomen: soft, mild to moderate lower abdominal tenderness with no localizing tenderness, nondistended, normal bowel sounds, no rebound Back: no vertebral tenderness, no CVAT Extremities: no deformities, moves all extremities symmetrically Neuro: Awake, alert, oriented, normal speech, cranial nerves intact, moves all extremities symmetrically Psych: Pleasant, cooperative Medications Administered Discontinued Medications Generic Name Dose Route Start Last Admin Trade Name Freq PRN Reason Stop Dose Admin Diphenhydramine HCl 50 mg 03/18/24 08:36 03/18/24 08:38 Diphenhydramine Hcl 50 Mg/Ml Vial IVPUSH 03/18/24 08:37 50 mg ONCE STA Administration Droperidol 1.25 mg 03/18/24 07:52 03/18/24 08:10 Droperidol 5 Mg/2 Ml Vial IVPUSH 03/18/24 07:53 1.25 mg ONCE ONE Administration Sodium Chloride 1,000 mls @ 999 mls/hr 03/18/24 07:52 03/18/24 09:11 Ns IV 03/18/24 08:52 Infused .Q1H1M STA Infusion Sodium Chloride 1,000 mls @ 999 mls/hr 03/18/24 07:53 03/18/24 11:00 Ns IV 03/18/24 08:53 Infused .Q1H1M STA Infusion Ketorolac Tromethamine 15 mg 03/18/24 07:52 03/18/24 08:10 Ketorolac Tromethamine 15 Mg/Ml Vial IVPUSH 03/18/24 07:53 15 mg ONCE STA Administration Lorazepam 1 mg 03/18/24 08:36 03/18/24 08:42 Lorazepam 2 Mg/Ml Vial IVPUSH 03/18/24 08:37 1 mg STAT STA Administration Metoclopramide HCl 10 mg 03/18/24 10:21 03/18/24 11:00 Metoclopramide Hcl 10 Mg/2 Ml Vial IVPUSH 03/18/24 10:22 10 mg ONCE STA Administration Medical Decision Making Medical Decision Making MDM Narrative: 28-year-old male history of opiate use disorder on methadone who presents emergency department for evaluation of nausea vomiting and diarrhea for 4 days. Patient was had recurrent episodes with the last visits in the emergency department on 02/12/2024 with normal laboratory evaluation and negative CT scan of the abdomen pelvis. Patient was not been able to hold down any food or fluid at least for the last 24 hours. He is complaining of lower abdominal pain. Vital signs were normal. Physical examination revealed mild to moderate lower abdominal tenderness with no localizing tenderness and no rebound. Differential diagnosis: ?Includes but is not limited to gastritis, peptic ulcer disease, inflammatory bowel disease, cyclic vomiting syndrome, cannabis hyperemesis syndrome, electrolyte abnormalities, anemia Following evaluation was ordered: CBC, CMP, urinalysis, COVID-19, influenza, RSV, lipase, IV insert, cardiac monitoring, O2 saturation monitoring Patient was initially treated with the following: Droperidol 1.25 mg IV, Toradol 15 mg IV, normal saline x1 L Course: 14:39 Patient's laboratory evaluation was unremarkable. Patient did have dyskinesia secondary to droperidol. He was given Reglan 10 mg IV for his persistent nausea and Benadryl 50 mg IV for his dyskinesia. Patient was feeling significantly better and was able to eat and drink fluids. Patient will be treated for gastritis with omeprazole 20 mg daily for 1 month. He was also given prescriptions for Reglan 10 mg every 6 hours as needed for nausea and vomiting and Benadryl 50 mg every 6 hours when he takes Reglan. He was given printed and verbal instructions on gastritis and cyclic vomiting syndrome/cannabis hyperemesis syndrome. He was also given a work note Admission/Observation Consideration of admission/observation: Escalation of care including admission/observation considered (Yes) Lab Data MDM Lab Attestation statement: I reviewed the patient's lab results. My independent interpretation patient's laboratory evaluation as follows: CBC was normal. CMP was normal. Lipase was normal. 03/18/24 06:44 03/18/24 06:44 Labs: Lab Results 03/18/24 03/18/24 Range/Units 06:38 06:44 WBC 6.6 (4.8-10.8) X10*3/uL RBC 5.13 (4.60-5.80) X10*6/uL Hgb 14.3 (14.0-18.0) g/dl Hct 41.6 L (42.0-52.0) % MCV 81.1 (80.0-98.0) fL MCH 27.9 (27.0-33.0) pg MCHC 34.4 (31.0-36.0) g/dl RDW 12.7 (11.0-16.0) % Plt Count 185 (160-400) X10*3/uL MPV 9.4 (9.4-12.4) fL Immature Gran % (Auto) 0.3 (0.0-0.4) % Neut % (Auto) 57.2 (45-73) % Lymph % (Auto) 33.2 (20-40) % [place] % (Auto) 7.4 (2-11) % Eos % (Auto) 1.4 (0-4) % Baso % (Auto) 0.5 (0-2) % Lymph # (Auto) 2.2 (1.2-4.9) X10*3/uL [place] # (Auto) 0.5 (0.1-1.2) X10*3/uL Eos # (Auto) 0.1 (0.0-0.4) X10*3/uL Baso # (Auto) 0.0 (0.0-0.2) X10*3/uL Abs Immat Gran (auto) 0.02 (0.00-0.03) X10*3/uL Absolute Neuts (auto) 3.8 (2.0-8.3) x10*3/uL Absolute Nucleated RBC 0.000 (0.0-0.012) X10*3/uL Nucleated RBC % (auto) 0.0 (0.0-0.2) /100WBC Sodium 141 (135-145) mmol/L Potassium 4.8 (3.3-5.1) mmol/L Chloride 105 (96-108) mmol/L Carbon Dioxide 26 (22-29) mmol/L Anion Gap 15 (12-20) BUN 14 (9-16) mg/dL Creatinine 0.99 (0.5-1.4) mg/dL Estim Creat Clear Calc 140.9 Estimated GFR > 60 Random Glucose 98 (60-115) mg/dL Calcium 9.9 (8.4-10.2) mg/dL Total Bilirubin 0.4 (0.0-1.0) mg/dL AST 31 (5-37) U/L ALT 27 (0-40) U/L Alkaline Phosphatase 80 (39-117) U/L Total Protein 8.1 H (6.5-8.0) g/dL Albumin 4.5 (3.5-5.0) g/dL Lipase 14 (8-78) U/L Influenza Type A (PCR) NEGATIVE (Negative) Influenza Type B (PCR) NEGATIVE (Negative) RSV RNA Qual (PCR) NEGATIVE (Negative) SARS-CoV-2 RNA (RT-PCR) NEGATIVE (Negative) Prescription Management I considered prescription management with: Other (Antiemetic-Reglan and proton pump inhibitor-Prilosec) Discharge Plan Discharge Clinical Impression: Gastritis, Cyclic vomiting syndrome Patient Disposition: Home, Self-Care Instructions: Gastritis (ED) Additional Instructions: Please read the gastritis instructions Take Prilosec (omeprazole) 20 mg pills, 1 pill once a day for 1 month. ?This medication shuts off your acid production and lets the inflammation in your stomach and esophagus heal. Reglan (metoclopramide) in 10 mg, 1 pill every 6 hours as needed for nausea and vomiting Benadry (diphenhydramine) l 25 mg, 2 pills whenever you take the Reglan The Benadryl and Reglan will make you sleepy, do not drive or work after taking these medications. Your repeat episodes of vomiting symptoms may be consistent with cyclic vomiting syndrome triggered by your marijuana use. This is called marijuana/cannabis hyperemesis syndrome. Smoking marijuana daily can change your brain chemistries and then this change activates the vomiting center in your brain that causes you to have repeat episodes of vomiting. The treatment is to stop smoking marijuana for at least 6 months. ?If you continue to smoke marijuana you will continue to get cycles of vomiting. Contact our drywall finishing foreman on-call for a follow-up appointment and further workup of your symptoms Please return to the emergency department if your symptoms get worse or if you develop any symptoms that are concerning to you. Please see the work note Your blood work today was normal. Your COVID-19, influenza and RSV tests were negative. The droperidol that you were given for nausea and vomiting caused dyskinesia (twitching, restlessness) in you should Narcan this medication again Prescriptions: New diphenhydramine HCl 25 mg capsule 50 mg PO Q6H PRN (Reason: headache, nausea, vomiting) Qty: 20 0RF omeprazole 20 mg capsule,delayed release(DR/EC) 20 mg PO DAILY 30 Days Qty: 30 0RF metoclopramide HCl [Reglan] 10 mg tablet 10 mg PO Q6H PRN (Reason: nausea and vomiting) Qty: 14 0RF No Action ibuprofen 600 mg tablet 600 mg PO Q6H PRN (Reason: pain) Qty: 30 0RF ondansetron 4 mg tablet,disintegrating 4 mg PO Q8H PRN (Reason: nausea and vomiting) Qty: 20 0RF pramoxine [Proctofoam] 1 % foam 1 appl ME BID Qty: 15 0RF sennosides [senna] 8.6 mg tablet 8.6 mg PO BEDTIME Qty: 14 0RF docusate sodium [Colace] 100 mg capsule 100 mg PO BID Qty: 20 0RF polyethylene glycol 3350 [Miralax] 17 gram/dose powder 17 g PO BID Qty: 238 0RF ondansetron 4 mg tablet,disintegrating 4 mg PO Q8H PRN (Reason: nausea and vomiting) Qty: 14 0RF hydrocodone-acetaminophen 5-325 mg tablet 1 tab PO Q4-6H PRN (Reason: pain) Qty: 30 0RF Rx Instructions: Partial Fill upon patient request. Referrals: Landon Gerber MD [Physician] - 2 weeks (Recurrent nausea, vomiting, dyspepsia, diarrhea. Seen multiple times in ED, evaluate for upper GI causes verses cyclic vomiting syndrome) Stand Alone Forms: Work/School Release Print Language: Citizen Of [place]
[2024-03-18] MEDS: 0.9 % Sodium Chloride 1,000 ML 999 ML IV ×2 (08:08→09:11)
[2024-03-18] MEDS: Ketorolac Tromethamine 15 MG/ML VIAL IVPUSH (08:10)
[2024-03-18] MEDS: droPERidol 5 MG/2 ML VIAL 1.25 MG IVPUSH (08:10)
[2024-03-18] MEDS: diphenhydrAMINE HCL 50 MG/ML VIAL IVPUSH (08:38)
[2024-03-18] MEDS: LORazepam 2 MG/ML VIAL 1 MG IVPUSH (08:42)
--- NOTE | 2024-03-18 08:42 | PC.NURSE ---
patient noted to have adverse type reaction possibly to droperidol, patient states his body feels hot all over and that he has bugs crawling on him, ED provider notified, medicated per MAr with IV ativan and benedryl. VSS
[2024-03-18] MEDS: Metoclopramide HCl 10 MG/2 ML VIAL IVPUSH (11:00)
== END 2024-03-18 15:48 | disposition home or self-care (01) ==
PROVIDERS: Emergency Provider Emergency Medicine Emergency Medical Services; PCP Nurse Practitioner Family
DX: K29.70 Gastritis, unspecified, without bleeding (principal); R11.15 Cyclical vomiting syndrome unrelated to migraine; F12.90 Cannabis use, unspecified, uncomplicated; G24.01 Drug induced subacute dyskinesia; T43.595A Adverse effect of other antipsychotics and neuroleptics, initial encounter; Y92.230 Patient room in hospital as the place of occurrence of the external cause; F11.20 Opioid dependence, uncomplicated; Z03.818 Encounter for observation for suspected exposure to other biological agents ruled out
CPT/HCPCS: 0241U; 36415; 80053; 83690; 85025; 96361; 96374; 96375; 99284; J1200; J1790; J1885; J2060; J2765

== ENCOUNTER 2024-08-30 13:08 | Emergency (ER) | payer OTHER, SELFPAY ==
[2024-08-30 13:16] VITALS: BP 138/90; PULSE 89; O2SAT 97
[2024-08-30 14:06] VITALS: BP 115/86; PULSE 96; RESP 20; TEMP 36.7; O2SAT 96
--- NOTE | 2024-08-30 14:15 | ECG_ITS ---
Test Reason : abd oain Blood Pressure : */* mmHG Vent. Rate : 93 BPM Atrial Rate : 93 BPM P-R Int : 148 ms QRS Dur : 76 ms QT Int : 366 ms P-R-T Axes : 40 86 15 degrees QTcB Int : 455 ms Normal sinus rhythm Nonspecific T wave abnormality Abnormal ECG When compared with ECG of 05-Jun-2019 03:45, Vent. rate has increased by 38 bpm Nonspecific T wave abnormality now evident in Inferior leads Nonspecific T wave abnormality now evident in Anterolateral leads QT has lengthened Referred By: Virginie Carter Electronically Signed By: NESHA OLSON
[2024-08-30 17:38] VITALS: BP 109/81; PULSE 100; RESP 20; TEMP 36.6; O2SAT 96
--- NOTE | 2024-08-30 17:38 | ED_ITS ---
HPI - Abdominal Pain General Chief Complaint: Abdominal Pain Stated Complaint: bloody stool, vomiting Related Data Previous Rx's ?Medication ?Instructions ?Recorded ibuprofen 600 mg tablet 600 mg PO Q6H PRN pain #30 tabs 07/30/20 ondansetron 4 mg disintegrating 4 mg PO Q8H PRN nausea and 07/30/20 tablet vomiting #20 tabs docusate sodium 100 mg capsule 100 mg PO BID #20 caps 09/10/23 (Colace) polyethylene glycol 3350 17 17 g PO BID #238 grams 09/10/23 gram/dose oral powder (Miralax) pramoxine 1 % topical foam 1 appl [place] BID #15 grams 09/10/23 (Proctofoam) sennosides 8.6 mg tablet (senna) 8.6 mg PO BEDTIME #14 tabs 09/10/23 hydrocodone 5 mg-acetaminophen 325 1 tab PO Q4-6H PRN pain #30 tabs 09/14/23 mg tablet ondansetron 4 mg disintegrating 4 mg PO Q8H PRN nausea and 02/12/24 tablet vomiting #14 tabs diphenhydramine HCl 25 mg capsule 50 mg (2 x 25 mg) PO Q6H PRN 03/18/24 headache, nausea, vomiting #20 caps metoclopramide HCl 10 mg tablet 10 mg PO Q6H PRN nausea and 03/18/24 (Reglan) vomiting #14 tabs omeprazole 20 mg capsule,delayed 20 mg PO DAILY 30 days #30 caps 03/18/24 release Allergies Allergy/AdvReac Type Severity Reaction Status Date / Time Sulfa (Sulfonamide Allergy Mild RASH Verified 08/30/24 14:09 Antibiotics) [SULFA (SULFONAMIDE ANTIBIOTICS)] [facility] Past Medical History Medical History Kidney stones Social History Social History Alcohol intake: never Substance Use Type: Marijuana Advance Directives: No Advance Directives Information Provided: No Do you have a plan to hurt others: No Plan Physical Exam ED Vital Signs: Vital Signs - 24 hr 08/30/24 14:06 08/30/24 17:38 Temperature 98.0 F 97.9 F Pulse Rate 96 100 Respiratory Rate 20 20 Blood Pressure 115/86 109/81 Pulse Oximetry 96 96 Oxygen Delivery Method Room Air Room Air BMI result Body Mass Index 0.0 Course Course Course Narrative: This is an RME: Additional HPI, ROS, PE not included below will be deferred to primary provider. RME assessment and note performed by: Virginie Carter PA-C This is a 28-year-old male who presents emergency department with complaints of abdominal pain, epigastric pain and vomiting since 4:00 a.m. this morning. Patient reports that the belly pain worsens just prior to vomiting. Abdomen is soft. Endorsing diarrhea. Also reports bloody stool. Patient actively vomiting in triage. Will Zofran. Patient unable to get blood work initially however we will try now. Does have a history of cyclical vomiting - seen in March 2024 Plan: Labs, EKG, further ER evaluation needed. Reevaluation(s) Reevaluation #1: Patient left without completing treatment. Medical Decision Making Lab Data 08/30/24 17:52 08/30/24 17:53 Labs: Lab Results 08/30/24 08/30/24 Range/Units 17:52 17:53 WBC 12.9 H (4.8-10.8) X10*3/uL RBC 5.58 (4.60-5.80) X10*6/uL Hgb 15.4 (14.0-18.0) g/dl Hct 43.9 (42.0-52.0) % MCV 78.7 L (80.0-98.0) fL MCH 27.6 (27.0-33.0) pg MCHC 35.1 (31.0-36.0) g/dl RDW 13.0 (11.0-16.0) % Plt Count 226 (160-400) X10*3/uL MPV 9.8 (9.4-12.4) fL Immature Gran % (Auto) 0.3 (0.0-0.4) % Neut % (Auto) 87.4 H (45-73) % Lymph % (Auto) 8.3 L (20-40) % [place] % (Auto) 3.8 (2-11) % Eos % (Auto) 0.0 (0-4) % Baso % (Auto) 0.2 (0-2) % Lymph # (Auto) 1.1 L (1.2-4.9) X10*3/uL [place] # (Auto) 0.5 (0.1-1.2) X10*3/uL Eos # (Auto) 0.0 (0.0-0.4) X10*3/uL Baso # (Auto) 0.0 (0.0-0.2) X10*3/uL Abs Immat Gran (auto) 0.04 H (0.00-0.03) X10*3/uL Absolute Neuts (auto) 11.2 H (2.0-8.3) x10*3/uL Absolute Nucleated RBC 0.000 (0.0-0.012) X10*3/uL Nucleated RBC % (auto) 0.0 (0.0-0.2) /100WBC Sodium 142 (135-145) mmol/L Potassium 3.5 D (3.3-5.1) mmol/L Chloride 107 (96-108) mmol/L Carbon Dioxide 21 L (22-29) mmol/L Anion Gap 18 (12-20) BUN 17 H (9-16) mg/dL Creatinine 0.79 (0.5-1.4) mg/dL Estim Creat Clear Calc TNP Estimated GFR > 60 Random Glucose 129 H (60-115) mg/dL Calcium 9.7 (8.4-10.2) mg/dL Magnesium 1.6 (1.6-2.6) mg/dL Total Bilirubin 0.7 (0.0-1.0) mg/dL Direct Bilirubin 0.2 (0.0-0.5) mg/dL AST 32 (5-37) U/L ALT 36 (0-40) U/L Alkaline Phosphatase 90 (39-117) U/L Troponin I High Sens < 2.7 (<3.5-35.0) ng/L Total Protein 8.6 H (6.5-8.0) g/dL Albumin 4.8 (3.5-5.0) g/dL Lipase 6 L (8-78) U/L Influenza Type A (PCR) NEGATIVE (Negative) Influenza Type B (PCR) NEGATIVE (Negative) RSV RNA Qual (PCR) NEGATIVE (Negative) SARS-CoV-2 RNA (RT-PCR) NEGATIVE (Negative) Medications Administered Discontinued Medications Generic Name Dose Route Start Last Admin Trade Name Freq PRN Reason Stop Dose Admin Ondansetron HCl 4 mg 08/30/24 17:38 08/30/24 17:41 Ondansetron Odt 4 Mg Tab.Solomonchristina MILDaksha 08/30/24 17:39 4 mg ONCE ONE Administration Discharge Plan Discharge Clinical Impression: Nausea & vomiting Patient Disposition: Left W/O Completing Treatment Prescriptions: No Action ibuprofen 600 mg tablet 600 mg PO Q6H PRN (Reason: pain) Qty: 30 0RF ondansetron 4 mg tablet,disintegrating 4 mg PO Q8H PRN (Reason: nausea and vomiting) Qty: 20 0RF pramoxine [Proctofoam] 1 % foam 1 appl [place] BID Qty: 15 0RF sennosides [senna] 8.6 mg tablet 8.6 mg PO BEDTIME Qty: 14 0RF docusate sodium [Colace] 100 mg capsule 100 mg PO BID Qty: 20 0RF polyethylene glycol 3350 [Miralax] 17 gram/dose powder 17 g PO BID Qty: 238 0RF diphenhydramine HCl 25 mg capsule 50 mg PO Q6H PRN (Reason: headache, nausea, vomiting) Qty: 20 0RF omeprazole 20 mg capsule,delayed release(DR/EC) 20 mg PO DAILY 30 Days Qty: 30 0RF metoclopramide HCl [Reglan] 10 mg tablet 10 mg PO Q6H PRN (Reason: nausea and vomiting) Qty: 14 0RF ondansetron 4 mg tablet,disintegrating 4 mg PO Q8H PRN (Reason: nausea and vomiting) Qty: 14 0RF hydrocodone-acetaminophen 5-325 mg tablet 1 tab PO Q4-6H PRN (Reason: pain) Qty: 30 0RF Rx Instructions: Partial Fill upon patient request. Discharge Date/Time: 08/30/24 21:11
[2024-08-30] MEDS: Ondansetron ODT 4 MG TAB.RAPDIS TRANSLINGU (17:41)
[2024-08-30 17:58] LABS: MANUAL DIFF FLAG NO
[2024-08-30 17:59] LABS: Basophils Percent Auto 0.2 % (0-2); Hematocrit 43.9 % (42.0-52.0); Hemoglobin 15.4 g/dl (14.0-18.0); Imm Gran Abs Auto 0.04 X10*3/uL (0.00-0.03); Imm Gran Pct Auto 0.3 % (0.0-0.4); Lymphocytes Absolute Auto 1.1 X10*3/uL (1.2-4.9); Lymphocytes Percent Auto 8.3 % (20-40); Mean Corpuscular HGB Conc 35.1 g/dl (31.0-36.0); Mean Corpuscular Hemoglobin 27.6 pg (27.0-33.0); Mean Corpuscular Volume 78.7 fL (80.0-98.0); Mean Platelet Volume 9.8 fL (9.4-12.4); Monocytes Absolute Auto 0.5 X10*3/uL (0.1-1.2); Monocytes Percent Auto 3.8 % (2-11); Neutrophils Absolute Auto 11.2 x10*3/uL (2.0-8.3); Neutrophils Percent Auto 87.4 % (45-73); Platelet Count 226 X10*3/uL (160-400); Red Blood Count 5.58 X10*6/uL (4.60-5.80); White Blood Count 12.9 X10*3/uL (4.8-10.8)
[2024-08-30 18:20] LABS: Alanine Aminotransferase 36 U/L (0-40); Albumin Level 4.8 g/dL (3.5-5.0); Alkaline Phosphatase 90 U/L (39-117); Anion Gap 18 (12-20); Aspartate Amino Transferase 32 U/L (5-37); Bilirubin Direct 0.2 mg/dL (0.0-0.5); Bilirubin Total 0.7 mg/dL (0.0-1.0); Blood Urea Nitrogen 17 mg/dL (9-16); Calcium 9.7 mg/dL (8.4-10.2); Carbon Dioxide 21 mmol/L (22-29); Chloride 107 mmol/L (96-108); Estimated Glomerular Filt Rate > 60; Glucose Random 129 mg/dL (60-115); Lipase 6 U/L (8-78); Magnesium 1.6 mg/dL (1.6-2.6); Potassium 3.5 mmol/L (3.3-5.1); Sodium 142 mmol/L (135-145); Total Protein 8.6 g/dL (6.5-8.0)
[2024-08-30 18:31] LABS: Troponin-I High Sensitivity < 2.7 ng/L (<3.5-35.0)
[2024-08-30 18:38] LABS: Influenza A PCR NEGATIVE (Negative); Influenza B PCR NEGATIVE (Negative); Resp Syncy Virus RNA Qual PCR NEGATIVE (Negative); SARS COV2 PCR INHOUSE NEGATIVE (Negative)
--- OUTSIDE RECORDS SUMMARY | 2024-08-30 21:02 | XMS_ITS | Clinical Summary ---
Author Organization [facility] ity Address [address] [place] [address] Care Team Providers Care Licensed Psychologist Name Role Phone Wade Spencer MD Primary Care Provider Allergies Active Allergy Reactions Criticality Noted Date Comments Sulfa (Sulfonamide Antibiotics) Rash 11/12 Active Problems Problem Noted Date Diagnosed Date Seizures 12/09/2017 Overview (07/04/2024): Since 18 yrs old Social History Tobacco Use Types Packs/Day Years Used Date Smoking Tobacco: Former Smokeless Tobacco: Never Alcohol Use Standard Drinks/Week Comments Yes 0 (1 standard drink = 0.6 oz pur e alcohol) Sex and Gender Information Value Date Recorded Sex Assigned at Not on file Legal Sex Male 7:09 PM EST Gender Identity Not on file Sexual Orientation Not on file Obstetrics History Plan of Treatment Health Maintenance Due Date Last Done Comments DTaP,Tdap,and Td Vaccines (1 - Tdap) 2013 Hepatitis B Vaccines (1 of 3 - 19+ 3-dose series) 2013 Depression Screening 06/14/2022 HIV Screening 06/14/2022 Hepatitis C Screening 06/14/2022 Social Influencers of Health Screening 06/14/2022 COVID-19 Vaccine (1 - 2023-2 5 season) 2024 Influenza Vaccine (#1) 2024 HIB Vaccines Aged Out No longer eligi ble based on patient's age to complete this topic HPV Vaccines Aged Out No longer eligi ble based on patient's age to complete this topic Hepatitis A Vaccines Aged Out No long er eligible based on patient's age to complete this topic IPV Vaccines Aged Out No longer eligi ble based on patient's age to complete this topic MMR Vaccines Aged Out No longer eligi ble based on patient's age to complete this topic Meningococcal ACWY Vaccine Aged Out N o longer eligible based on patient's age to complete this topic Meningococcal B Vacine Aged Out No lo nger eligible based on patient's age to complete this topic Pneumococcal Vaccine: Pediat rics (0 to 5 Years) and At-Risk Patients (6 to 64 Years) Aged Out No longer eligible b ased on patient's age to complete this topic RSV Immunization Patients Un johnny 20 months Aged Out No longer eligible b ased on patient's age to complete this topic Varicella Vaccines Aged Out No longer eligible based on patient's age to complete this topic Care Teams Licensed Psychologist Relationship Specialty Start Date End Date Wade Spencer MD PCP - General Internal Medicine 05/08/20
== END 2024-08-30 21:11 | disposition left against medical advice (07) ==
PROVIDERS: Physician Assistant Medical; Emergency Provider Emergency Medicine
DX: R11.2 Nausea with vomiting, unspecified (principal); R10.13 Epigastric pain; Z03.818 Encounter for observation for suspected exposure to other biological agents ruled out
CPT/HCPCS: 0241U; 36415; 80048; 80076; 83690; 83735; 84484; 85025; 93005; 99283

== ENCOUNTER → 2024-08-30 14:15 | Outpatient (BNV) | payer OTHER, SELFPAY | PROVIDERS: Visit Provider Internal Medicine | DX: R94.31 Abnormal electrocardiogram [ECG] [EKG] (principal); R10.9 Unspecified abdominal pain | CPT/HCPCS: 93010 ==

== ENCOUNTER 2024-10-10 10:46 | Inpatient (IN) | payer OTHER, SELFPAY ==
--- NOTE | ~2024-10-10 | US_ITS ---
EXAMINATION: US ABDOMEN LIMITED CLINICAL INFORMATION: Epigastric and right upper quadrant pain, positive white count, vomiting. COMPARISON: No prior. Correlation made with CT abdomen and pelvis 02/12/2024. TECHNIQUE: Real-time imaging of the right upper quadrant abdominal viscera. FINDINGS: PANCREAS: Visualized portions are unremarkable. LIVER: Liver is mildly enlarged, with the right hepatic lobe measuring 16.8 cm. The liver contour is normal. There is mildly diffusely increased liver parenchymal echogenicity, consistent with hepatic steatosis. No focal hepatic lesion. There is no intrahepatic biliary duct dilatation seen. GALLBLADDER: The gallbladder is physiologically distended without evidence of calculi. Borderline wall thickening at 3 mm. There is some echogenic sludge layering within the gallbladder. There was a positive sonographic Talbert sign. COMMON BILE DUCT: Normal in caliber measuring 0.5 cm in diameter. RIGHT KIDNEY: No hydronephrosis. No renal calculi or focal parenchymal lesions. The kidney measures 12.1. cm in maximum dimension. FREE FLUID: None. US/US abdomen limited IMPRESSION: 1. Echogenic sludge within the gallbladder, with borderline wall thickening at 3 mm. No definite calculi seen. The technologist reported a positive sonographic Talbert's sign, raising the possibility of acute cholecystitis. 2. Mild enlargement of the liver with mild diffusely increased echogenicity consistent with steatosis. Electronically signed by: Dmitri Sousa MD 10/10/2024 02:11 PM EDT
[2024-10-10 10:59] VITALS: BP 136/98; PULSE 92; RESP 16; TEMP 37.1; O2SAT 95; BMI 31.6
[2024-10-10 11:20] LABS: MANUAL DIFF FLAG NO
[2024-10-10 11:22] LABS: Basophils Absolute Auto 0.1 X10*3/uL (0.0-0.2); Basophils Percent Auto 0.3 % (0-2); Eosinophils Absolute Auto 0.1 X10*3/uL (0.0-0.4); Eosinophils Percent Auto 0.3 % (0-4); Hematocrit 46.9 % (42.0-52.0); Hemoglobin 16.8 g/dl (14.0-18.0); Imm Gran Abs Auto 0.07 X10*3/uL (0.00-0.03); Imm Gran Pct Auto 0.5 % (0.0-0.4); Lymphocytes Absolute Auto 3.8 X10*3/uL (1.2-4.9); Lymphocytes Percent Auto 24.7 % (20-40); Mean Corpuscular HGB Conc 35.8 g/dl (31.0-36.0); Mean Corpuscular Hemoglobin 28.2 pg (27.0-33.0); Mean Corpuscular Volume 78.8 fL (80.0-98.0); Mean Platelet Volume 9.4 fL (9.4-12.4); Monocytes Absolute Auto 1.2 X10*3/uL (0.1-1.2); Monocytes Percent Auto 7.9 % (2-11); Neutrophils Absolute Auto 10.2 x10*3/uL (2.0-8.3); Neutrophils Percent Auto 66.3 % (45-73); Platelet Count 287 X10*3/uL (160-400); Red Blood Count 5.95 X10*6/uL (4.60-5.80); Red Cell Distribution Width 12.6 % (11.0-16.0); White Blood Count 15.3 X10*3/uL (4.8-10.8)
[2024-10-10 11:37] LABS: Alanine Aminotransferase 53 U/L (0-40); Albumin Level 4.7 g/dL (3.5-5.0); Alkaline Phosphatase 84 U/L (39-117); Anion Gap 15 (12-20); Aspartate Amino Transferase 50 U/L (5-37); Bilirubin Direct 0.4 mg/dL (0.0-0.5); Bilirubin Total 1.2 mg/dL (0.0-1.0); Blood Urea Nitrogen 15 mg/dL (9-16); Calcium 9.6 mg/dL (8.4-10.2); Carbon Dioxide 30 mmol/L (22-29); Chloride 94 mmol/L (96-108); Creatinine Clr Calc Pharmacy 130.6; Estimated Glomerular Filt Rate > 60; Glucose Random 125 mg/dL (60-115); Lipase 7 U/L (8-78); Potassium 3.3 mmol/L (3.3-5.1); Sodium 136 mmol/L (135-145); Total Protein 8.3 g/dL (6.5-8.0)
[2024-10-10 12:03] LABS: Influenza A PCR NEGATIVE (Negative); Influenza B PCR NEGATIVE (Negative); Resp Syncy Virus RNA Qual PCR NEGATIVE (Negative); SARS COV2 PCR INHOUSE NEGATIVE (Negative)
[2024-10-10 13:05] LABS: Magnesium 2.1 mg/dL (1.6-2.6)
[2024-10-10 13:21] LABS: Troponin-I High Sensitivity < 2.7 ng/L (<3.5-35.0)
[2024-10-10] MEDS: 0.9 % Sodium Chloride 1,000 ML 999 ML IV (13:22)
[2024-10-10] MEDS: Ketorolac Tromethamine 15 MG/ML VIAL IVPUSH (13:23)
[2024-10-10] MEDS: diphenhydrAMINE HCL 50 MG/ML VIAL 25 MG IVPUSH (13:24)
[2024-10-10] MEDS: Metoclopramide HCl 10 MG/2 ML VIAL IVPUSH (13:27)
[2024-10-10 13:38] LABS: OBS Int Ctl Valid YES; OBS1 NEGATIVE (NEGATIVE)
--- OUTSIDE RECORDS SUMMARY | 2024-10-10 14:08 | XMS_ITS | Clinical Summary ---
Author Organization [facility] ity Address [address] [place] [address] Care Team Providers Care Taper [employer]ed [employer] Layout Name Role Phone Wade Spencer MD Primary Care Provider [phone] Allergies Active Allergy Reactions Criticality Noted Date [...] age to complete this topic Care Teams T[employer] Relationship Specialty Start Date End Date Wade Spencer MD PCP - General Internal Medicine 05/08/20
--- OUTSIDE RECORDS SUMMARY | 2024-10-10 14:08 | XMS_ITS | Clinical Summary ---
Author Organization [facility] Address [address] [place] [id number] Care Team Providers Care Compliance Officer Name Role Phone Unavailable Primary Care Provider Unavailabl e Allergies No known active allergies Social History Tobacco Use Types Packs/Day Years Used Date Smoking Tobacco: Never Assessed Sex and Gender Information Value Date Recorded Sex Assigned at Not on file Legal Sex Male 1:15 PM EDT Gender Identity Not on file Sexual Orientation Not on file Last Filed Vital Signs Vital Sign Reading Time Taken Comments Blood Pressure 147/89 12/07/2023 1:22 PM EDT Pulse - - Temperature 36.8 ??C (98.3 ??F) 12/07/2023 1:22 PM ED T Respiratory Rate 18 12/07/2023 1:22 PM EDT Oxygen Saturation 99% 12/07/2023 1:22 PM EDT Inhaled Oxygen Concentration - - Weight 113.4 kg (250 lb) 12/07/2023 1:22 PM EDT Height 180.3 cm (5' 11 ) 12/07/2023 1:22 PM EDT Body Mass Index 34.87 12/07/2023 1:22 PM EDT Plan of Treatment Health Maintenance Due Date Last Done Comments Hepatitis C Screening 1994 Annual Physical Exam 2012 Tdap and Td Vaccines Adult 2013 COVID-19 Vaccine ( - 2023-2 5 season) 2024 Influenza Vaccine [...] patient's age to complete this topic Meningococcal Vaccine Aged Out No bunny ata eligible based on patient's age to complete this topic Pneumococcal Vaccine: Peds ( 0 to 5 Yrs) and At-Risk Pts (6 to 49 Yrs) Aged Out No lo nger eligible based on patient's age to complete this topic RSV <20 Months Aged Out No longer harjit lopez based on patient's age to complete this topic
--- NOTE | 2024-10-10 14:21 | ED.NAVMDI ---
HPI - Nausea/Vomiting/Diarrhea General Chief complaint: Nausea/Vomiting/Diarrhea Stated complaint: Vomiting Rectal Bleeding Time Seen by Provider: 10/10/24 12:26 Source: patient and family () Mode of arrival: ambulatory Limitations: no limitations History of Present Illness ED Provider: LUNA FRAZIER PA-C HPI Narrative: 29 year old male with pmhx significant for IVDU presents to the ED today for evaluation of nausea, vomiting, and abdominal pain x5 days. Abdominal pain is localized to epigastric region. Reports pain comes in waves. Associated nausea and vomiting. Admits to daily marijuana use. He reports a history of cyclical vomiting however states this feels different. He is unable to tolerate an PO. Denies diarrhea, constipation. Admits to occasional bright red blood in his stools however states he has a history of hemorrhoids. Denies melena. Denies etoh use. Denies any other ilicit substance use. Allan fever, chills, flank pain, urinary sx. Related Data Previous Rx's ?Medication ?Instructions ?Recorded diphenhydramine HCl 25 mg capsule 50 mg (2 x 25 mg) PO Q6H PRN 03/18/24 headache, nausea, vomiting #20 caps Allergies Allergy/AdvReac Type Severity Reaction Status Date / Time Sulfa (Sulfonamide Allergy Mild RASH Verified 10/10/24 11:02 Antibiotics) [SULFA (SULFONAMIDE ANTIBIOTICS)] Review of Systems Review of Systems: Yes all other systems are reviewed and are negative PMFSH Past Medical History Attestation statement: The following information was validated with the patient. Source: old records reviewed and nursing notes reviewed Medical History Kidney stones Social History Social History Alcohol intake: never Smoked in Last 30 Days: No Use of substances other than those prescribed or required for medical reasons: No Substance Use Type: Marijuana Advance Directives: No Advance Directives Information Provided: Yes Physical Exam Vital Signs: Vital Signs: Last Vital Signs Temp 98.7 F 10/10/24 10:59 Pulse 92 10/10/24 10:59 Resp 16 10/10/24 10:59 BP 136/98 H 10/10/24 10:59 Pulse Ox 95 10/10/24 10:59 O2 Del Method Room Air 10/10/24 10:59 BMI result Body Mass Index 31.6 Hypertensive, afebrile General: diaphoretic Skin: Warm, dry, intact. No rashes or lesions. Head: Normocephalic, atraumatic. EENT: Hearing is intact b/l. Conjunctiva clear. PERRLA. EOM intact. Moist mucous membranes.? Neck: Supple without LAD Cardiac: Chest wall symmetric. RRR. Lungs: Normal respiratory effort without accessory muscle use. CTA bilaterally Abdomen: obese, soft, nondistended, tender to palpation of epigastric region and right upper quadrant with minimal guarding. No rebound tenderness. Active bowel sounds x4. no cvat. Rectal exam performed with Sintia BERNSTEIN present in room to horizontal drill operator. Normal rectal sphincter tone. No external masses or lesions. Palpable hard/ soft stool in rectal vault. Stool is normal in appearance. OBS negative. Back: No midline spinous or paraspinal tenderness. No step off deformity. Ext: Upper and lower extremities atraumatic, without tenderness, deformity, swelling or erythema Neuro: AOx3. Normal speech. Ambulating with steady gait. Psych: Appropriate mood and affect. Responds appropriately to questions. Course Course Course Narrative: 1442 -- CBC with leukocytosis to 15.3. No anemia. H&H stable. Chemistry without acute electrolyte abnormality requiring intervention. Random glucose 125. Total bili elevated to 1.2. This is not patient's baseline when compared to priors. AST and ALT elevated. Lipase WNL. Troponin undetectable. negative covid, flu, rsv. > given RUQ tenderness and elevated bili, RUQ US obtained. Ultrasound showing gallbladder physiologically distended without evidence of calculi. Borderline wall thickening at 3 mm with echogenic sludge layering within the gallbladder. Positive sonographic Talbert's sign. Liver mildly enlarged with right hepatic lobe measuring 16.8 cm. Mildly diffuse chest increased liver parenchymal echogenicity consistent with hepatic steatosis. No intrahepatic biliary ductal dilation seen. > I discussed all work up results with patient and his . > I reached out to dr. cerda w/ general surgery d/t concern for acute cholecystitis. he will be down to evaluate patient shortly. in the meantime, will obtain blood cultures and start patient on IV zosyn. reilly does not meet SIRS criteria for sepsis at this time. 1505 -- dr. cerda and DONATO garcia at bedside. Will admit patient to surgical service with plan for OR tomorrow. Patient agreeable. Dr. Cerda to place admission orders. patient stable at this time. Medications Administered Discontinued Medications Generic Name Dose Route Start Last Admin Trade Name Freq PRN Reason Stop Dose Admin Diphenhydramine HCl 25 mg 10/10/24 12:44 10/10/24 13:24 Diphenhydramine Hcl 50 Mg/Ml Vial IVPUSH 10/10/24 12:45 25 mg ONCE ONE Administration Sodium Chloride 1,000 mls @ 999 mls/hr 10/10/24 12:45 10/10/24 14:23 Ns IV 10/10/24 13:45 Infused .Q1H1M KONSTANTIN Infusion Piperacillin Sod/Tazobactam 50 mls @ 100 mls/hr 10/10/24 14:29 10/10/24 15:12 Sod 3.375 gm/ Sodium Chloride IV 10/10/24 14:58 Infused ONCE ONE Infusion Ketorolac Tromethamine 15 mg 10/10/24 12:47 10/10/24 13:23 Ketorolac Tromethamine 15 Mg/Ml Vial IVPUSH 10/10/24 12:48 15 mg ONCE ONE Administration Metoclopramide HCl 10 mg 10/10/24 12:44 10/10/24 13:27 Metoclopramide Hcl 10 Mg/2 Ml Vial IVPUSH 10/10/24 12:45 10 mg ONCE ONE Administration Medical Decision Making Medical Decision Making MDM Narrative: 29 year old male with pmhx significant for IVDU presents to the ED today for evaluation of nausea, vomiting, and abdominal pain x5 days. Patient was hypertensive, afebrile. He is ill-appearing, diaphoretic. Appears uncomfortable. Abdomen is obese, soft, nondistended, tender to palpation of epigastric region and right upper quadrant with minimal guarding. No rebound tenderness. Active bowel sounds x4. no cvat. Rectal exam performed with Sintia BERNSTEIN present in room to horizontal drill operator. Normal rectal sphincter tone. No external masses or lesions. Palpable hard/ soft stool in rectal vault. Stool is normal in appearance. OBS negative. Differential diagnosis includes biliary colic, renal colic, nephrolithiasis, gastroenteritis, gastritis, PUD, cyclical vomiting syndrome, hemorrhoids. Abdominal exam without peritoneal signs. Moderate suspicion for acute hepatobiliary disease (including acute cholecystitis). Less likely to represent acute pancreatitis, perforated ulcer/ GI bleed, acute infectious processes (pneumonia, hepatitis, pyelonephritis), atypical appendicitis, vascular catastrophe, bowel obstruction or viscus perforation. Plan: labs, IVF, pain control, RUQ US, serial reassessment Differential Diagnosis Differential Diagnoses: The differential diagnosis associated with the presentation includes as above. Admission/Observation Consideration of admission/observation: Escalation of care including admission/observation considered Consult Healthcare Provider general surgery - dr. cerda Lab Data MDM Lab Attestation statement: I reviewed the patient's lab results. as above. 10/10/24 11:16 10/10/24 11:16 Labs: Lab Results 10/10/24 10/10/24 Range/Units 11:16 13:32 WBC 15.3 H (4.8-10.8) X10*3/uL RBC 5.95 H (4.60-5.80) X10*6/uL Hgb 16.8 (14.0-18.0) g/dl Hct 46.9 (42.0-52.0) % MCV 78.8 L (80.0-98.0) fL MCH 28.2 (27.0-33.0) pg MCHC 35.8 (31.0-36.0) g/dl RDW 12.6 (11.0-16.0) % Plt Count 287 D (160-400) X10*3/uL MPV 9.4 (9.4-12.4) fL Immature Gran % (Auto) 0.5 H (0.0-0.4) % Neut % (Auto) 66.3 (45-73) % Lymph % (Auto) 24.7 (20-40) % [place] % (Auto) 7.9 (2-11) % Eos % (Auto) 0.3 (0-4) % Baso % (Auto) 0.3 (0-2) % Lymph # (Auto) 3.8 (1.2-4.9) X10*3/uL [place] # (Auto) 1.2 (0.1-1.2) X10*3/uL Eos # (Auto) 0.1 (0.0-0.4) X10*3/uL Baso # (Auto) 0.1 (0.0-0.2) X10*3/uL Abs Immat Gran (auto) 0.07 H (0.00-0.03) X10*3/uL Absolute Neuts (auto) 10.2 H (2.0-8.3) x10*3/uL Absolute Nucleated RBC 0.000 (0.0-0.012) X10*3/uL Nucleated RBC % (auto) 0.0 (0.0-0.2) /100WBC Sodium 136 (135-145) mmol/L Potassium 3.3 (3.3-5.1) mmol/L Chloride 94 L (96-108) mmol/L Carbon Dioxide 30 H (22-29) mmol/L Anion Gap 15 (12-20) BUN 15 (9-16) mg/dL Creatinine 0.98 (0.5-1.4) mg/dL Estim Creat Clear Calc 130.6 Estimated GFR > 60 Random Glucose 125 H (60-115) mg/dL Calcium 9.6 (8.4-10.2) mg/dL Magnesium 2.1 (1.6-2.6) mg/dL Total Bilirubin 1.2 H (0.0-1.0) mg/dL Direct Bilirubin 0.4 (0.0-0.5) mg/dL AST 50 H (5-37) U/L ALT 53 H (0-40) U/L Alkaline Phosphatase 84 (39-117) U/L Troponin I High Sens < 2.7 (<3.5-35.0) ng/L Total Protein 8.3 H (6.5-8.0) g/dL Albumin 4.7 (3.5-5.0) g/dL Lipase 7 L (8-78) U/L Stool Occult Blood NEGATIVE (NEGATIVE) Influenza Type A (PCR) NEGATIVE (Negative) Influenza Type B (PCR) NEGATIVE (Negative) RSV RNA Qual (PCR) NEGATIVE (Negative) SARS-CoV-2 RNA (RT-PCR) NEGATIVE (Negative) Independent Interpretation I performed an independent interpretation of an: Ultrasound Interpretation: ruq us showing gb sludge Radiology Impression Discussion of test interpretation with radiology: I have reviewed the radiologist's reading. Radiologist Impression: Procedure(s): US abdomen limited Accession Number(s): [id number] cc: Physician,None ; Luna Frazier~ EXAMINATION: US ABDOMEN LIMITED CLINICAL INFORMATION: Epigastric and right upper quadrant pain, positive white count, vomiting. COMPARISON: No prior. Correlation made with CT abdomen and pelvis 02/12/2024. TECHNIQUE: Real-time imaging of the right upper quadrant abdominal viscera. FINDINGS: PANCREAS: Visualized portions are unremarkable. LIVER: Liver is mildly enlarged, with the right hepatic lobe measuring 16.8 cm. The liver contour is normal. There is mildly diffusely increased liver parenchymal echogenicity, consistent with hepatic steatosis. No focal hepatic lesion. There is no intrahepatic biliary duct dilatation seen. GALLBLADDER: The gallbladder is physiologically distended without evidence of calculi. Borderline wall thickening at 3 mm. There is some echogenic sludge layering within the gallbladder. There was a positive sonographic Talbert sign. COMMON BILE DUCT: Normal in caliber measuring 0.5 cm in diameter. RIGHT KIDNEY: No hydronephrosis. No renal calculi or focal parenchymal lesions. The kidney measures 12.1. cm in maximum dimension. FREE FLUID: None. US/US abdomen limited IMPRESSION: 1. Echogenic sludge within the gallbladder, with borderline wall thickening at 3 mm. No definite calculi seen. The technologist reported a positive sonographic Talbert's sign, raising the possibility of acute cholecystitis. 2. Mild enlargement of the liver with mild diffusely increased echogenicity consistent with steatosis. Electronically signed by: Dmitri Sousa MD 10/10/2024 02:11 PM EDT Independent Historian Clinical information obtained from an independent historian. History obtained from or confirmed by: Spouse External Record Review External record reviewed: Inpatient record Prescription Management I considered prescription management with: Pain Medication and Antibiotic Chronic Conditions Patient?s care impacted by: Other (IVDU) Social Determinants Patient?s care significantly limited by Social Determinants of Health including: Other Social Determinant of Health Critical Care Time Critical Care Time Critical Care Time: Yes Total Critical Care Time: 35 Attestation: Critical care time in the amount of 35 minutes has been provided to the patient in terms of direct patient care, frequent reevaluation, consultation with General surgery, review and interpretation of medical data and results, and management of potentially life-threatening conditions. This is all outside of any medical procedures. Discharge Plan Discharge Clinical Impression: Acute cholecystitis Patient Disposition: Admitted As Inpatient Print Language: [place] Islander
[2024-10-10] MEDS: Piperacillin Sodium/Tazobactam 3.375 GM in 0.9 % Sodium Chloride 50 ML IV (14:42)
--- NOTE | 2024-10-10 14:58 | P.HPGS_ITS ---
History of Present Illness History of Present Illness Date of Service: 10/10/24 Chief complaint: Vomiting Rectal Bleeding Narrative: Wei Goddard is a 29 year old male with PMH of cyclic vomiting syndrome, constipation who presented to the ED with c/o upper abdominal pain, nausea/vom iting for the past week. He reports he developed epigastric/RUQ pain followed by nausea and vomiting. He has been unable to keep any oral intake down. He reports episodes of nausea and vomiting for the past year that would begin immediately upon wakening and last a few days. He was subsequently diagnosed with CVS however he reports this felt different. He denies any diarrhea, melena, sick contacts. He does report occasional BRBPR. Work up in the ED included CBC, BMP, LFTs significant for a leukocytosis of 15.3. Mildly elevated bili 1.2, AST/ALT 50/53. ABD US showed distended gallbladder, echogenic bile, wall thickening. No biliary ductal dilatation. He feels slightly improved after ketorolac but his abdomen still feels sore. Review of Systems Review of Systems: Yes all other systems are reviewed and are negative [facility] Past Medical History Medical History Kidney stones Social History Social History Alcohol intake: never Smoked in Last 30 Days: No Use of substances other than those prescribed or required for medical reasons: No Substance Use Type: Marijuana Advance Directives: No Advance Directives Information Provided: Yes Meds Allergies Allergy/AdvReac Type Severity Reaction Status Date / Time Sulfa (Sulfonamide Allergy Mild RASH Verified 10/10/24 11:02 Antibiotics) [SULFA (SULFONAMIDE ANTIBIOTICS)] Physical Exam Vital Signs: Vital Signs: Last Vital Signs Temp 98.7 F 10/10/24 10:59 Pulse 92 10/10/24 10:59 Resp 16 10/10/24 10:59 BP 136/98 H 10/10/24 10:59 Pulse Ox 95 10/10/24 10:59 O2 Del Method Room Air 10/10/24 10:59 BMI result Body Mass Index 31.6 Const: General: comfortable, no acute distress and alert Orientation/consciousness: patient oriented x3 Neck: Neck: Yes no JVD Resp: Effort & Inspection: normal respiratory effort GI: Other: mildly corpulent abdomen Inspection: No scar Palpation (GI): Soft to palpation, Tenderness to palpation present (GI) (moderately ) in the RUQ and Rodas's sign positive, no guarding and not rigid Percussion: Yes normal to percussion Skin: General skin exam: no rashes or lesions noted and no jaundice Neuro: General: patient oriented x3 and moves all extremities Results Results Labs: Short CBC 10/10/24 Range/Units 11:16 WBC 15.3 H (4.8-10.8) X10*3/uL Hgb 16.8 (14.0-18.0) g/dl Hct 46.9 (42.0-52.0) % Plt Count 287 D (160-400) X10*3/uL BMP 10/10/24 11:16 Sodium 136 Potassium 3.3 Chloride 94 L Carbon Dioxide 30 H BUN 15 Creatinine 0.98 Calcium 9.6 Liver Function 10/10/24 Range/Units 11:16 Total Bilirubin 1.2 H (0.0-1.0) mg/dL Direct Bilirubin 0.4 (0.0-0.5) mg/dL AST 50 H (5-37) U/L ALT 53 H (0-40) U/L Alkaline Phosphatase 84 (39-117) U/L Albumin 4.7 (3.5-5.0) g/dL Abdominal ultrasound report/results: report reviewed and image reviewed Assessment and Plan (1) Acute cholecystitis: Status: Acute Plan 29 year old male with PMH of cyclic vomiting syndrome, constipation presenting with upper abdominal pain, nausea/vomiting for a week with leukocytosis, and ABD US showing distended gallbladder with wall thickening and tender RUQ with positive rodas sign consistent with acute cholecystitis. He was admitted to the surgical service for further treatment. He can have clear liquids for now and NPO after midnight. Cont IVF, IV zosyn. Risks, benefits, alternatives of laparoscopic possible open cholecystectomy were reviewed with the patient including but not limited to bleeding, infection, numbness, pain, poor healing, injury to the liver, bowel or bile ducts, leak, retained stones and the patient wishes to proceed.?He was added onto the OR schedule for tomorrow.?All questions were answered. Quality Stroke Does the patient have a stroke diagnosis?: No VTE Prior VTE?: No VTE Risk Level:: Surgical - moderate VTE Device Contraindication: N/A - Device Ordered VTE Drug Contraindication: Treatment Not Tolerated Procedures Date of Service Date of Service: 10/10/24
--- NOTE | 2024-10-10 15:19 | PHA.MEDREC ---
Addendum entered by Matthew Ramirez 10/10/24 15:25: reviewed Original Note: Pharmacy Consult ? Medication Reconciliation Pharmacy has completed the medication reconciliation. Spoke to patient to confirm med list. Patient states he gets Methadone 103 mg daily from [facility] in [place], Last dose was yesterday 10/09/24
[2024-10-10] MEDS: Lactated Ringers 1,000 ML 80 ML IVCONT (15:29)
--- NOTE | 2024-10-10 15:29 | PC.NURSE ---
confirmed methadone dosing with [facility] [phone] - pt rec 103mg on 10/07 with 27 take home doses, pt reports he took 103mg yesterday. Methdone verification faxed to pharmacy
--- NOTE | 2024-10-10 15:49 | HE.PHANOTE ---
METHADONE Dose: 103mg, last dosed 10/08/23 @0834 with 27 take home doses [facility].
[2024-10-10] MEDS: methADONE HCl 20 MG/2 ML ORAL.CONC 103 MG PO (16:01)
--- NOTE | 2024-10-10 16:06 | PC.NURSE ---
pt medicated per SHIRA w/ 103mg methadone- pt currently rec LR @ 80ml/hr- no complaints from pt at this time. pt will be on clear liquid diet until 00:00 per gen surg.
--- NOTE | 2024-10-10 16:21 | PC.NURSE ---
summary of care:29yo M, a&o x4 independent with ADl's at baseline. Pmhx: IVDU on methadone presents to the ED today for nausea/vomiting, and abdominal pain x5 days. pt reports pain is localized to epigastric region. that comes in waves. He reports a history of cyclical vomiting however states this feels different. Pt also reports rectal bleeding. Iv access was ovbtain w/ US guidancve- labs were obtained- stool occult negative, LFT's increased, bilirubin elevated. pt rec US in dept which was significant for distended gallbladder with wall thickening and tender RUQ with positive rodas sign consistent with acute cholecystitis. Pt was seen by general surgery at bedside, plan is for pt to go to OR in the morning. pt is currently on clear liquid diet until 00:00, pt was given methadone dose of 103mg (confirmed with [facility]). Pt was started on IV Zosyn, IVF (LR) infusing at 80ml/hour, pain currently 3/10 after toradol.
[2024-10-10] MEDS: ondansetron HCL 4 MG/2 ML VIAL IVPUSH (17:02)
--- NOTE | 2024-10-10 17:04 | PC.NURSE ---
pt medicated w/ 4mg zfran for c/o nausea effectiveness pending
[2024-10-10 19:34] VITALS: BP 125/92; PULSE 83; RESP 18; TEMP 36.8; O2SAT 92
[2024-10-10 20:47] VITALS: BP 140/90; PULSE 83; RESP 18; TEMP 36.4; O2SAT 96
[2024-10-10] MEDS: Morphine Sulfate 4 MG/ML CARTRIDGE IVPUSH (21:13)
[2024-10-10 23:28] VITALS: BP 123/73; PULSE 66; RESP 16; TEMP 36; O2SAT 95
[2024-10-10] MEDS: Melatonin 3 MG TABLET 6 MG PO (23:46)
[2024-10-10] MEDS: oxyCODONE HCl Immed Release 5 MG TABLET PO (23:47)
[2024-10-11] VITALS (12 sets, daily range): BP systolic 110–149; BP diastolic 53–90; PULSE 51–103; RESP 16–18; TEMP 36.6–37.1; O2SAT 92–97
[2024-10-11] MEDS: Piperacillin Sodium/Tazobactam 3.375 GM in 0.9 % Sodium Chloride 50 ML IV ×3 (01:30→13:39)
[2024-10-11] MEDS: Lactated Ringers 1,000 ML 80 ML IVCONT ×3 (04:12→16:07)
[2024-10-11] MEDS: Omeprazole 20 MG CAPSULE.DR PO (06:16)
[2024-10-11] MEDS: ondansetron HCL 4 MG/2 ML VIAL IVPUSH (07:16)
[2024-10-11] MEDS: 0.9 % Sodium Chloride Flush 3 ML SYRINGE IVFLUSH ×2 (07:18→16:00)
[2024-10-11] MEDS: Morphine Sulfate 4 MG/ML CARTRIDGE IVPUSH ×2 (07:22→20:16)
--- NOTE | 2024-10-11 08:42 | PM.PNGS ---
Subjective Subjective Date of Service: 10/11/24 Interval history: Continues with epigastric pain, feels a little improved. Physical Exam Vital Signs: Vital Signs: Last Vital Signs Temp 98.2 F 10/11/24 07:11 Pulse 87 10/11/24 07:11 Resp 18 10/11/24 07:11 BP 117/73 10/11/24 07:11 Pulse Ox 92 10/11/24 07:11 O2 Del Method Room Air 10/11/24 07:11 BMI result Body Mass Index 31.6 Const: General: comfortable, no acute distress and alert Orientation/consciousness: patient oriented x3 GI: Inspection: No distended Palpation (GI): Soft to palpation and Tenderness to palpation present (GI) in the epigastrum and in the RUQ Skin: General skin exam: no rashes or lesions noted and no jaundice Neuro: General: patient oriented x3 and moves all extremities Objective Data Active Medications Acetaminophen (Acetaminophen 325 Mg Tablet) 650 mg PO Q6H PRN PRN Reason: Pain, Mild 1-3,fever,headache Calcium Carbonate (Calcium Carbonate 750 Mg Tab.Chew) 750 mg PO Q4H PRN PRN Reason: Heartburn Lactated Ringer's (Lr) 1,000 mls @ 80 mls/hr IVCONT .[id number] [facility] Last Infusion: 10/11/24 06:47 Dose: 80 mls/hr Documented By: JANESSA Piperacillin Sod/Tazobactam (Sod 3.375 gm/ Sodium Chloride) 50 mls @ 100 mls/hr IV Q6H [facility] Last Infusion: 10/11/24 06:47 Dose: Infused Documented By: JANESSA Magnesium Hydroxide (Milk Of Magnesia 30 Ml Oral.Susp) 30 ml PO DAILY PRN PRN Reason: Constipation Melatonin (Melatonin 3 Mg Tablet) 6 mg PO BEDTIME PRN PRN Reason: Insomnia Last Admin: 10/10/24 23:46 Dose: 6 mg Documented By: JANESSA Morphine Sulfate (Morphine Sulfate 4 Mg/Ml Cartridge) 4 mg IVPUSH Q4H PRN; Protocol PRN Reason: Pain, Severe (Pain Scale 7-10) Last Admin: 10/11/24 07:22 Dose: 4 mg Documented By: LASHAY Omeprazole (Omeprazole 20 Mg Capsule.) 20 mg PO DAILY@0630 [facility] Last Admin: 10/11/24 06:16 Dose: 20 mg Documented By: JANESSA Ondansetron HCl (Ondansetron Hcl 4 Mg/2 Ml Vial) 4 mg IVPUSH Q8H PRN PRN Reason: Nausea and Vomiting Last Admin: 10/11/24 07:16 Dose: 4 mg Documented By: LASHAY Oxycodone HCl (Oxycodone Hcl Immed Release 5 Mg Tablet) 5 mg PO Q4H PRN PRN Reason: Pain, Moderate(Pain Scale 4-6) Last Admin: 10/10/24 23:47 Dose: 5 mg Documented By: JANESSA Sodium Chloride (0.9 % Sodium Chloride Flush 3 Ml Syringe) 3 ml IVFLUSH QSOKFT [facility] Last Admin: 10/11/24 07:18 Dose: 3 ml Documented By: LASHAY Labs 10/10/24 11:16 10/10/24 11:16 Labs: Laboratory Results - last 24 hr 10/10/24 10/10/24 11:16 13:32 MCV 78.8 L MCH 28.2 MCHC 35.8 RDW 12.6 Plt Count 287 D MPV 9.4 Immature Gran % (Auto) 0.5 H Neut % (Auto) 66.3 Lymph % (Auto) 24.7 [place] % (Auto) 7.9 Eos % (Auto) 0.3 Baso % (Auto) 0.3 Lymph # (Auto) 3.8 [place] # (Auto) 1.2 Eos # (Auto) 0.1 Baso # (Auto) 0.1 Abs Immat Gran (auto) 0.07 H Absolute Neuts (auto) 10.2 H Absolute Nucleated RBC 0.000 Nucleated RBC % (auto) 0.0 Anion Gap 15 Estim Creat Clear Calc 130.6 Estimated GFR > 60 Random Glucose 125 H Calcium 9.6 Magnesium 2.1 Total Bilirubin 1.2 H Direct Bilirubin 0.4 AST 50 H ALT 53 H Alkaline Phosphatase 84 Total Protein 8.3 H Albumin 4.7 Lipase 7 L Stool Occult Blood NEGATIVE Influenza Type A (PCR) NEGATIVE Influenza Type B (PCR) NEGATIVE RSV RNA Qual (PCR) NEGATIVE SARS-CoV-2 RNA (RT-PCR) NEGATIVE Procedures Date of Service Date of Service: 10/11/24 Progress Note: A&P Assessment and plan (1) Acute cholecystitis: Status: Acute Plan Plan for lap alcira, possible open today. Cont NPO status, IVF, IV zosyn. Hx of IVDA, on methadone. Dose verified by RN and ordered. Patient comfortable with plan. All questions answered. Time Spent With Patient Time: Total time managing care of this patient today ____ minutes. Quality Stroke Does the patient have a stroke diagnosis?: No VTE Prior VTE?: No VTE Risk Level:: Surgical - moderate VTE Device Contraindication: N/A - Device Ordered VTE Drug Contraindication: Treatment Not Indicated
[2024-10-11] MEDS: methADONE HCl 20 MG/2 ML ORAL.CONC 103 MG PO (08:53)
--- NOTE | 2024-10-11 09:38 | MHC.CM.PN ---
PT LIVES WITH S/O HAS A RIDE HOME WHEN DCD HE IS INDEPENDENT WILL NOT NEE SERVUICES DC PLAN HOME N/S
--- NOTE | 2024-10-11 11:48 | PC.NURSE ---
Patient transported to OR by OR staff
--- NOTE | 2024-10-11 12:43 | HO.ANESPROP2 ---
[facility] Active Problems Active Problems: All Active Problems Acute cholecystitis (Acute) External hemorrhoid (Acute) Past Medical History Medical History Kidney stones Functional capacity: independent ambulation Family History Family history of problems with anesthesia: No Surgical History History of Problems with Anesthesia: No Social History Social History Household Members: Spouse Housing: Apartment Do you presently have visiting nurse or other home services: No Alcohol intake: never Patient Tobacco Use Status: Current everyday Tobacco user e-Cigarette/Vaping Use: Currently Using Second Hand Smoke Exposure: No Substance Use Type: Marijuana service: No Meds Allergies Allergy/AdvReac Type Severity Reaction Status Date / Time Sulfa (Sulfonamide Allergy Mild RASH Verified 10/10/24 11:02 Antibiotics) [SULFA (SULFONAMIDE ANTIBIOTICS)] Active Medications: Current Medications Acetaminophen (Acetaminophen 325 Mg Tablet) 650 mg PO Q6H PRN PRN Reason: Pain, Mild 1-3,fever,headache Calcium Carbonate (Calcium Carbonate 750 Mg Tab.Chew) 750 mg PO Q4H PRN PRN Reason: Heartburn Lactated Ringer's (Lr) 1,000 mls @ 80 mls/hr IVCONT .[id number] [facility] Last Infusion: 10/11/24 06:47 Dose: 80 mls/hr Piperacillin Sod/Tazobactam (Sod 3.375 gm/ Sodium Chloride) 50 mls @ 100 mls/hr IV Q6H [facility] Last Infusion: 10/11/24 06:47 Dose: Infused Lactated Ringer's (Lr) 1,000 mls @ 80 mls/hr IVCONT .[id number] [facility] Last Admin: 10/11/24 12:12 Dose: 80 mls/hr Magnesium Hydroxide (Milk Of Magnesia 30 Ml Oral.Susp) 30 ml PO DAILY PRN PRN Reason: Constipation Melatonin (Melatonin 3 Mg Tablet) 6 mg PO BEDTIME PRN PRN Reason: Insomnia Last Admin: 10/10/24 23:46 Dose: 6 mg Methadone HCl (Methadone Hcl 20 Mg/2 Ml Oral.Conc) 103 mg PO DAILY@0800 [facility] Last Admin: 10/11/24 08:53 Dose: 103 mg Morphine Sulfate (Morphine Sulfate 4 Mg/Ml Cartridge) 4 mg IVPUSH Q4H PRN; Protocol PRN Reason: Pain, Severe (Pain Scale 7-10) Last Admin: 10/11/24 07:22 Dose: 4 mg Omeprazole (Omeprazole 20 Mg Capsule.Dr) 20 mg PO DAILY@0630 [facility] Last Admin: 10/11/24 06:16 Dose: 20 mg Ondansetron HCl (Ondansetron Hcl 4 Mg/2 Ml Vial) 4 mg IVPUSH Q8H PRN PRN Reason: Nausea and Vomiting Last Admin: 10/11/24 07:16 Dose: 4 mg Oxycodone HCl (Oxycodone Hcl Immed Release 5 Mg Tablet) 5 mg PO Q4H PRN PRN Reason: Pain, Moderate(Pain Scale 4-6) Last Admin: 10/10/24 23:47 Dose: 5 mg Sodium Chloride (0.9 % Sodium Chloride Flush 3 Ml Syringe) 3 ml IVFLUSH [facility] Last Admin: 10/11/24 07:18 Dose: 3 ml Home Medications ?Medication ?Instructions ?Recorded ?Confirmed ?Last Taken ?Type methadone 10 mg/mL oral 103 mg PO DAILY 10/10/24 10/10/24 10/09/24 History concentrate (Methadone Intensol) Exam Height,Weight and Vital Signs: Height 5 ft 10 in Weight 100 kg Last Vital Signs Temp 98.4 F 10/11/24 12:05 Pulse 69 10/11/24 12:05 Resp 16 10/11/24 12:05 BP 126/83 10/11/24 12:05 Pulse Ox 97 10/11/24 12:05 O2 Del Method Room Air 10/11/24 12:05 Pertinent Lab Results Pertinent Lab Results: Laboratory Tests 10/10/24 10/10/24 11:16 13:32 WBC 15.3 H RBC 5.95 H Hgb 16.8 Hct 46.9 MCV 78.8 L MCH 28.2 MCHC 35.8 RDW 12.6 Plt Count 287 D MPV 9.4 Immature Gran % (Auto) 0.5 H Neut % (Auto) 66.3 Lymph % (Auto) 24.7 [place] % (Auto) 7.9 Eos % (Auto) 0.3 Baso % (Auto) 0.3 Lymph # (Auto) 3.8 [place] # (Auto) 1.2 Eos # (Auto) 0.1 Baso # (Auto) 0.1 Abs Immat Gran (auto) 0.07 H Absolute Neuts (auto) 10.2 H Absolute Nucleated RBC 0.000 Nucleated RBC % (auto) 0.0 Sodium 136 Potassium 3.3 Chloride 94 L Carbon Dioxide 30 H Anion Gap 15 BUN 15 Creatinine 0.98 Estim Creat Clear Calc 130.6 Estimated GFR > 60 Random Glucose 125 H Calcium 9.6 Magnesium 2.1 Total Bilirubin 1.2 H Direct Bilirubin 0.4 AST 50 H ALT 53 H Alkaline Phosphatase 84 Troponin I High Sens < 2.7 Total Protein 8.3 H Albumin 4.7 Lipase 7 L Stool Occult Blood NEGATIVE Influenza Type A (PCR) NEGATIVE Influenza Type B (PCR) NEGATIVE RSV RNA Qual (PCR) NEGATIVE SARS-CoV-2 RNA (RT-PCR) NEGATIVE Airway Mallampati Class: II TM Dist: >3cm Neck ROM: Full Heart: RRR Lungs: CTA Assessment and Plan Assessment Anesthesia Assessment: Anesthesia Plan Discussed, Smoking Cess. Discussed and Chart Reviewed Final Anesthetic Review Family History of Problems with Anesthesia: No History of Problems with Anesthesia: No NPO: Yes ASA Class: II and Emergency Final Preanesthetic Review: Meds/Allgs Chart Reviewed, Consent Obtained/Reviewed and Anes Risks/Benef Reviewed Patient Risk: Low Procedure Risk: Intermediate Anesthetic Plan Anesthetic Plan: GA Disposition: Standard PACU
--- NOTE | 2024-10-11 14:39 | P.OP_ITS ---
Operative Note Operative Note Date of Service: 10/11/24 Narrative: Preoperative diagnosis: [] Symptomatic acute gallbladder Postop diagnosis: [] The same Procedure [] laparoscopic cholecystectomy Surgeon: [] Steven Implementation Engineer: [] Leslie Type of Anesthesia: [] General Indication for surgery: [] Markedly edematous Gallbladder with omental adhesions to it. Moderately intrahepatic gallbladder. Findings: [] Patient brought to the operating room, placed on operative table supine position, after an adequate level of general anesthesia was induced, the patient's abdomen was prepped and draped in usual sterile fashion. Using a supraumbilical curvilinear incision, Silva technique was used to insufflate abdominal cavity to 15 mm of CO2. Upper midline and right subcostal ports were placed under direct laparoscopic view, and the patient placed in reverse Trendelenburg position, and tilted to the left. Findings were as noted above. Gallbladder was grasped using laparoscopic graspers and retracted superiorly and laterally. Soft omental adhesions were swept off the gallbladder and the hilum was approached. Cystic artery and cystic duct were each identified, circumferentially skeletonized, traced directly into the gallbladder, and critical view obtained. Each was clipped proximally x2, distally x1, and transected. The gallbladder which was moderately intrahepatic was then cauterized from the gallbladder fossa using Bovie. Specimen placed in an Endo- Catch bag, and retrieved through the umbilical port. Abdominal cavity was copiously irrigated and secured hemostasis. All ports removed under direct laparoscopic view. Wounds were closed in the following manner; umbilical wound is fascia reapproximated using interrupted 0 Vicryl sutures. Skin wounds were closed using subcuticular 4-0 Vicryl sutures followed by Steri-Strips and sterile dressings. Wounds were infiltrated 0.5% Marcaine at completion. Sponge, needle, and instrument counts reported correct. Patient tolerated the procedure well and emerged from anesthesia stable condition. EBL minimal
[2024-10-11] MEDS: HYDROmorphone HCl 0.5 MG/0.5 ML SYRINGE IVPUSH ×2 (15:00→15:15)
[2024-10-11] MEDS: Ketorolac Tromethamine 30 MG/ML VIAL IVPUSH (15:05)
[2024-10-11] MEDS: Acetaminophen 1,000 MG/100 ML PIGGYBACK 400 MG IV ×2 (15:21→20:17)
[2024-10-11] MEDS: oxyCODONE HCl Immed Release 5 MG TABLET PO (16:16)
[2024-10-12] MEDS: Acetaminophen 1,000 MG/100 ML PIGGYBACK 400 MG IV (02:56)
[2024-10-12] MEDS: Morphine Sulfate 4 MG/ML CARTRIDGE IVPUSH ×2 (03:01→07:30)
[2024-10-12] MEDS: Lactated Ringers 1,000 ML 80 ML IVCONT (03:01)
[2024-10-12 04:08] VITALS: BP 107/53; PULSE 58; RESP 18; TEMP 36.7; O2SAT 96
[2024-10-12] MEDS: Omeprazole 20 MG CAPSULE.DR PO (05:42)
--- NOTE | 2024-10-12 06:56 | P.PNGS_ITS ---
Subjective Subjective Date of Service: 10/12/24 <Mati Matta - Last Filed: 10/12/24 08:53> 10/12/24 <Karissa Nelson PA-C - Last Filed: 10/12/24 08:52> 10/12/24 <Carlos Harris MD - Last Filed: 10/12/24 07:43> Interval history: No acute overnight events Wei is doing well this morning. he reports diffuse abdominal pain, 5/10. He reports tolerating liquids without n/v. Ambulatory to restroom. Voiding bladder spontaneously. He denies passing flatus, and has not had a bowel movement. Denies chest pain, dyspnea, weakness, chills. <Mati Matta - Last Filed: 10/12/24 08:53> Physical Exam 2 Vital Signs: Vital Signs: Last Vital Signs Temp 98.0 F 10/12/24 04:08 Pulse 58 10/12/24 04:08 Resp 18 10/12/24 04:08 BP 107/53 L 10/12/24 04:08 Pulse Ox 96 10/12/24 04:08 O2 Del Method Room Air 10/12/24 04:08 BMI result Body Mass Index 31.6 <Mati Paxton - Last Filed: 10/12/24 08:53> Const: General: comfortable, awake and tired appearing <Mati Paxton - Last Filed: 10/12/24 08:53> Eyes: Other: EOMI no scleral icterus <[facility] - Last Filed: 10/12/24 08:53> Resp: Other: CTAB speaking in full sentences <Mati Paxton - Last Filed: 10/12/24 08:53> Cardio: Other: RRR normal s1/s2 <Mati Paxton - Last Filed: 10/12/24 08:53> GI: Other: BS present soft, distended abdomen incision bandages clean and dry without surrounding erythema <Mati Paxton - Last Filed: 10/12/24 08:53> Palpation (GI): Tenderness to palpation present (GI) (mild incisional tenderness) <Karissa Nelson PA-C - Last Filed: 10/12/24 08:52> Skin: General skin exam: no rashes or lesions noted and no jaundice < Karissa Nelson PA-C - Last Filed: 10/12/24 08:52> Neuro: Other: AOx3 moving all extremities spontaneously <Mati Matta - Last Filed: 10/12/24 08:53> Extrem: Other: no pedal edema <Mati Matta - Last Filed: 10/12/24 08:53> Objective Data Active Medications Calcium Carbonate (Calcium Carbonate 750 Mg Tab.Chew) 750 mg PO Q4H PRN PRN Reason: Heartburn Diphenhydramine HCl (Diphenhydramine Hcl 25 Mg Capsule) 50 mg PO Q6H PRN PRN Reason: headache, nausea, vomiting Lactated Ringer's (Lr) 1,000 mls @ 80 mls/hr IVCONT .[id number] [facility] Last Admin: 10/12/24 03:01 Dose: 80 mls/hr Documented By: JANESSA Acetaminophen (Ofirmev) 1,000 mg in 100 mls @ 400 mls/hr IV Q6H [facility] Last Infusion: 10/12/24 03:12 Dose: Infused Documented By: JANESSA Ketorolac Tromethamine (Ketorolac Tromethamine 30 Mg/Ml Vial) 30 mg IVPUSH Q6H PRN PRN Reason: Pain, Mild (Pain Scale 1-3) Stop: 10/16/24 15:11 Magnesium Hydroxide (Milk Of Magnesia 30 Ml Oral.Susp) 30 ml PO DAILY PRN PRN Reason: Constipation Melatonin (Melatonin 3 Mg Tablet) 6 mg PO BEDTIME PRN PRN Reason: Insomnia Last Admin: 10/10/24 23:46 Dose: 6 mg Documented By: JANESSA Methadone HCl (Methadone Hcl 20 Mg/2 Ml Oral.Conc) 103 mg PO DAILY@0800 [facility] Last Admin: 10/11/24 08:53 Dose: 103 mg Documented By: LASHAY Co-signed By: MARIA T Morphine Sulfate (Morphine Sulfate 4 Mg/Ml Cartridge) 4 mg IVPUSH Q4H PRN; Protocol PRN Reason: Pain, Severe (Pain Scale 7-10) Last Admin: 10/12/24 03:01 Dose: 4 mg Documented By: JANESSA Naloxone HCl (Naloxone Hcl 0.4 Mg/Ml Vial) 0.04 mg IVPUSH Q5M PRN PRN Reason: Excessive sedation or RR < 8 Omeprazole (Omeprazole 20 Mg Capsule.Dr) 20 mg PO DAILY@0630 [facility] Last Admin: 10/12/24 05:42 Dose: 20 mg Documented By: JANESSA Ondansetron HCl (Ondansetron Hcl 4 Mg/2 Ml Vial) 4 mg IVPUSH Q8H PRN PRN Reason: Nausea and Vomiting Last Admin: 10/11/24 07:16 Dose: 4 mg Documented By: LASHAY Oxycodone HCl (Oxycodone Hcl Immed Release 5 Mg Tablet) 5 mg PO Q4H PRN PRN Reason: Pain, Moderate(Pain Scale 4-6) Last Admin: 10/11/24 16:16 Dose: 5 mg Documented By: LASHAY Sodium Chloride (0.9 % Sodium Chloride Flush 3 Ml Syringe) [facility] Last Admin: 10/12/24 00:08 Dose: Not Given Documented By: JANESSA Non-Admin Reason: IV Running <Mati Matta - Last Filed: 10/12/24 08:53> Labs CBC & Chem 7: 10/10/24 11:16 10/10/24 11:16 <Mati Matta - Last Filed: 10/12/24 08:53> Microbiology Microbiology Results: Microbiology 10/10/24 14:38 Blood Culture - Preliminary Blood - Venous No growth after 24 hours. 10/10/24 14:38 Blood Culture - Preliminary Blood - Venous No growth after 24 hours. <Mati Matta - Last Filed: 10/12/24 08:53> Procedures Date of Service Date of Service: 10/12/24 <Mati Matta - Last Filed: 10/12/24 08:53> 10/12/24 <Karissa Nelson PA-C - Last Filed: 10/12/24 08:52> 10/12/24 <Carlos Harris MD - Last Filed: 10/12/24 07:43> Progress Note: A&P Assessment and plan (1) Status post laparoscopic cholecystectomy: Status: Acute <Mati Matta - Last Filed: 10/12/24 08:53> Assessment and Plan: Wei is POD 1 from lap cholecystectomy. Overall he is doing well, with expected incisional pain and tenderness. Advance diet as tolerable. Mildly hypotensive this morning, most likely from methadone. Encouraged incentive spirometry use 10 times per hour. Pt requires IV medication for adequate pain management at this time. Andrei PaxtonFRANCK <Mati Matta - Last Filed: 10/12/24 08:53> Wei is POD 1 from lap cholecystectomy. Overall he is doing well, with expected incisional pain and tenderness. Advance diet as tolerable. Mildly hypotensive this morning, most likely from methadone. Encouraged incentive spirometry use 10 times per hour. Pt requires IV medication for adequate pain management at this time. Andrei PaxtonFRANCK aguiar Agree with above assessment and plan. Doing well, receiving IV ofirmev. VSS. Abd exam benign with clean dressings, appropriate post op tenderness. Will transition to PO OTC tylenol and motrin in anticipation of discharge to home. Encouraged OOB/ambulation and IS use. <Karissa Nelson PA-C - Last Filed: 10/12/24 08:52> Wei is POD 1 from lap cholecystectomy. Overall he is doing well, with expected incisional pain and tenderness. Advance diet as tolerable. Mildly hypotensive this morning, most likely from methadone. Encouraged incentive spirometry use 10 times per hour. Pt requires IV medication for adequate pain management at this time. Andrei PaxtonFRANCK Agree with above assessment and plan. Doing well, receiving IV ofirmev. VSS. Abd exam benign with clean dressings, appropriate post op tenderness. Will transition to PO OTC tylenol and motrin in anticipation of discharge to home. Encouraged OOB/ambulation and IS use. As noted above <Carlos Harris MD - Last Filed: 10/12/24 07:43> Time Spent With Patient Time: Total time managing care of this patient today ____ minutes. <Mati Matta - Last Filed: 10/12/24 08:53> Quality Stroke Does the patient have a stroke diagnosis?: No <Mati Matta - Last Filed: 10/12/24 08:53> VTE Prior VTE?: No <Mati Matta - Last Filed: 10/12/24 08:53> VTE Risk Level:: Surgical - moderate <Mati Matta - Last Filed: 10/12/24 08:53> VTE Device Contraindication: N/A - Device Ordered <Mati Matta - Last Filed: 10/12/24 08:53> VTE Drug Contraindication: Treatment Not Indicated <Mati Matta - Last Filed: 10/12/24 08:53>
[2024-10-12 07:56] VITALS: BP 126/80; PULSE 61; RESP 18; TEMP 36.3; O2SAT 98
--- NOTE | 2024-10-12 08:38 | HO.POSTANES ---
Post Anesthesia Evaluation Post Anesthesia Evaluation Date of Service: 10/12/24 Vital Signs: Vital Signs Temp Pulse Resp BP Pulse Ox O2 Del Method 10/12/24 07:56 97.4 F 61 18 126/80 98 Room Air 10/12/24 04:08 98.0 F 58 18 107/53 L 96 Room Air 10/11/24 23:22 98.0 F 51 18 110/53 L 95 Room Air Anesthesia: General Mental Status: Awake Pain Control: Satisfactory Nausea/Vomiting: None Hydration: Adequate Anesthesia-Related Issues: No Anes. Related Issues
[2024-10-12] MEDS: Ibuprofen 600 MG TABLET PO (09:00)
[2024-10-12] MEDS: methADONE HCl 20 MG/2 ML ORAL.CONC 103 MG PO (09:00)
[2024-10-12] MEDS: Acetaminophen 325 MG TABLET 975 MG PO (09:01)
[2024-10-12] MEDS: 0.9 % Sodium Chloride Flush 3 ML SYRINGE IVFLUSH (09:07)
--- NOTE | 2024-10-12 10:56 | P.DS_ITS ---
DS: Providers Provider Date of Service: 10/12/24 Date of admission: 10/10/24 15:11 Date of discharge: 10/12/24 Primary care physician: Essie Physician Attending physician on admission: Carlos Harris Attending physician on discharge: Carlos Harris DS: Diagnosis Discharge Diagnosis (1) Status post laparoscopic cholecystectomy: Status: Acute DS: Summary Hospital Course Hospital Course: HPI AT ADMISSION: Wei Goddard is a 29 year old male with PMH of cyclic vomiting syndrome, constipation who presented to the ED with c/o upper abdominal pain, nausea/vomiting for the past week. He reports he developed epigastric/RUQ pain followed by nausea and vomiting. He has been unable to keep any oral intake down. He reports episodes of nausea and vomiting for the past year that would begin immediately upon wakening and last a few days. He was subsequently diagnosed with CVS however he reports this felt different. He denies any diarrhea, melena, sick contacts. He does report occasional BRBPR. Work up in the ED included CBC, BMP, LFTs significant for a leukocytosis of 15.3. Mildly elevated bili 1.2, AST/ALT 50/53. ABD US showed distended gallbladder, echogenic bile, wall thickening. No biliary ductal dilatation. He feels slightly improved after ketorolac but his abdomen still feels sore. HOSPITAL COURSE: The patient was admitted to the surgical service for further treatment of the acute cholecystitis. He elected to proceed with laparoscopic cholecystectomy, possible open. He was added onto the OR schedule for the following day. He was started on IV zosyn and IVF, PRN analgesics. On 10/11/24, a laparoscopic cholecystectomy was performed by Dr. Harris without complication. The patient tolerated the procedure well. He had an uncomplicated recovery course. On POD #1, he felt well and was tolerating a solid diet without nausea or vomiting, had good pain control and was ambulating without difficulty. He was hemodynamically stable. His abdomen was benign with appropriate post op t enderness and clean and intact dressings. He felt ready for discharge. He was discharged to home on 10/12/24 in stable condition. He is to follow up in the office in 1 week. Status at Discharge Functional status at discharge: independent ambulation Overall status at discharge: patient is progressing back to baseline Time Attestation Discharge Coordination Time (in mins): 30 Quality: Safe Use of Opioids Does Pt have an Active Cancer Diagnosis on the Problem List?: No Quality: Stroke Does the patient have a stroke diagnosis?: No Physical Exam Vital Signs: Vital Signs: Last Vital Signs Temp 97.4 F 10/12/24 07:56 Pulse 61 10/12/24 07:56 Resp 18 10/12/24 07:56 BP 126/80 10/12/24 07:56 Pulse Ox 98 10/12/24 07:56 O2 Del Method Room Air 10/12/24 07:56 BMI result Body Mass Index 31.6 Const: General: comfortable, no acute distress and alert Orientation/consciousness: patient oriented x3 Resp: Effort & Inspection: normal respiratory effort GI: Inspection: No distended and Yes incision (dressings clean and intact ) Palpation (GI): Soft to palpation, Tenderness to palpation present (GI) (mild incisional tenderness) and no guarding Skin: General skin exam: no rashes or lesions noted and no jaundice Neuro: General: patient oriented x3 and moves all extremities DS: Data Data Completed and Pending Pending studies at discharge: Pending at discharge 10/11/24 14:15 Surgical [PTH] Routine Labs on day of discharge: Preliminary micro results at discharge 10/10/24 14:38 Blood Culture - Preliminary Blood - Venous No growth after 24 hours. 10/10/24 14:38 Blood Culture - Preliminary Blood - Venous No growth after 24 hours. Discharge Plan Discharge Anticipated Discharge Date/Time: 10/12/24 14:32 Patient Disposition: Home, Self-Care Discharge Diagnosis: acute cholecystitis Referrals: Physician,None [Primary Care Provider] - 1 Week Carlos Harris MD [Physician] - 1 Week Discharge Medications: New docusate sodium [Colace] 100 mg capsule 100 mg PO BID Qty: 30 0RF oxycodone 5 mg tablet 5 mg PO Q4H PRN (Reason: pain (scale score 7-10)) Qty: 24 0RF Rx Instructions: Partial Fill upon patient request. ibuprofen 600 mg tablet 600 mg PO Q6H PRN (Reason: pain) Qty: 30 0RF Continued diphenhydramine HCl 25 mg capsule 50 mg PO Q6H PRN (Reason: headache, nausea, vomiting) Qty: 20 0RF methadone [Methadone Intensol] 10 mg/mL Concentrate 103 mg PO DAILY Discharge Orders: Discharge Order (Routine); Ordered 10/12/24 Ordered By: Karissa Nelson Diet: Low fat, low cholesterol Activity on Discharge: No heavy lifting Stand Alone Forms: Patient Portal Discharge page, Work/School Release Print Language: Burkinan Activity Restrictions/Additional Instructions: Apply an ice pack for short intervals (20 minutes on, followed by at least 20 minutes off) for the first 2 days. Do not apply heat. Do not use creams, lotions, or topical antibiotics. These can cause infection or allergic reaction. Ok to shower 48 hours after your surgery. Remove dressings in 2 days (10/13/24). You have steri strips (small white cloth strips) covering your incision- these will fall off ~1 week. Follow up in office with Dr. Harris in 1 week. ([phone]) No heavy lifting (>10lbs) or strenuous activity! Take Tylenol Extra-strength 1-2 tabs every 6 hours for the first day, then as needed. Oxycodone every 6-8 hours as needed for pain. Colace 100 mg every day as needed for constipation. Call Your Doctor If: -Your temperature exceeds 101.5? F -You experience excessive pain or swelling -You have an unexpected reaction to medication -You have excessive bleeding -You experience continued vomiting/nausea -Your incision begins to separate -Your incision shows signs of infection such as increased redness, swelling, excessive pain, drainage (light blood or clear fluid is normal) or heat Care Plan Goals: Return to baseline health and resume normal activities following recovery period. Health Concerns: acute cholecystitis Plan of Treatment: s/p laparoscopic cholecystectomy f/u in office in 1 week pain control Assessment: Doing well post op. Patient Instructions: High Fiber Diet (DC)
--- NOTE | 2024-10-12 11:09 | MHC.CM.PN ---
pt dcd home self care
== END 2024-10-12 11:59 | disposition home or self-care (01) | DRG 263 ==
LOC: HO.ED 15:06 → HO.EDOVER 15:26 → HO.S3 19:21
PROVIDERS: Physician Assistant Medical; Surgery; Admitting Provider Physician Assistant Surgical; Emergency Provider Emergency Medicine; Visit Provider Physician Assistant Surgical
PROC: 0FT44ZZ Resection of Gallbladder, Percutaneous Endoscopic Approach (ICD-10-PCS; CPT 47562; principal; 2024-10-11 13:00)
DX: K81.0 Acute cholecystitis (principal); F11.20 Opioid dependence, uncomplicated; F17.210 Nicotine dependence, cigarettes, uncomplicated; Z71.6 Tobacco abuse counseling; Z20.822 Contact with and (suspected) exposure to COVID-19; Z79.899 Other long term (current) drug therapy
CPT/HCPCS: 0241U; 76705; 80053; 82248; 82272; 83690; 83735; 84484; 85025; 87040; 88304; 99285; J0131; J1100; J1171; J1200; J1596; J1885; J2003; J2250; J2270; J2405; J2543; J2704; J2765; J2795; J3010; J7120; Q9967

== ENCOUNTER → 2024-10-10 12:44 | Outpatient (BNV) | payer OTHER, SELFPAY | PROVIDERS: Emergency Provider Emergency Medicine; Visit Provider Radiology Diagnostic Radiology | DX: K82.8 Other specified diseases of gallbladder (principal) | CPT/HCPCS: 76705 ==

== ENCOUNTER → 2024-10-10 15:11 | Outpatient (BNV) | payer OTHER, SELFPAY | PROVIDERS: Admitting Provider Physician Assistant Surgical; Emergency Provider Emergency Medicine; Visit Provider Physician Assistant Surgical | DX: K81.0 Acute cholecystitis (principal); Z90.49 Acquired absence of other specified parts of digestive tract | CPT/HCPCS: 47562; 99024; 99499 ==

== ENCOUNTER 2024-10-25 13:19 | Outpatient (AMB) | payer OTHER, SELFPAY ==
--- NOTE | 2024-10-25 13:34 | A.OFFVIS_ITS ---
Vital Signs 10/25/24 13:39 Weight 231 lb BP 127/67 Blood Pressure Location Rt brachial Position Sitting Pulse 94 Intake Visit Reasons: s/p cholecystectomy Intake Note: Patient here s/p laparoscopic cholecystectomy. Reports incision healing well. Patient c/o: no concerns. Only took rx pain meds for the first couple of days. Surgery: 10-11-2024 Lump Machine Operator Required: No Accompanied by: Self / Same As Patient Allergies Sulfa (Sulfonamide Antibiotics) [SULFA (SULFONAMIDE ANTIBIOTICS)] Allergy (Mild, Verified 10/25/24 13:38) RASH HPI Comments Details: Patient was status post laparoscopic cholecystectomy. He is doing well. He is tolerating a diet. Having regular bowel habits. He has had no recurrence of his symptoms. He is increasing his activity level. He has minimal incisional discomfort. [facility] Medical History (Updated 10/20/24 @ 00:01 by Malinda Echeverria) Kidney stones Surgical History (Updated 10/21/24 @ 15:13 by WALTER Hope) Status post laparoscopic cholecystectomy (10/11/24) Social History Household Members: Spouse Housing: Apartment Do you presently have visiting nurse or other home services: No Alcohol intake: never Patient Tobacco Use Status: Current everyday Tobacco user e-Cigarette/Vaping Use: Currently Using Second Hand Smoke Exposure: No Substance Use Type: Marijuana service: No Physical Exam Vital Signs: Last Vital Signs Pulse 94 10/25/24 13:39 BP 127/67 10/25/24 13:39 Eyes Other: Anicteric GI Other: Abdomen is soft, benign. All wounds clean dry and intact healing well Assessment & Plan Assessment & Plan (1) Status post laparoscopic cholecystectomy: Onset Date: 10/11/24 Comment: Dr. Steven Gonzalez Code(s): Z90.49 - Acquired absence of other specified parts of digestive tract Category: Medical Plan Patient was been given local wound instructions and will otherwise follow-up p.r.n.. Paperwork for his employment has been filled out as well. All questions answered. Coding Level of Care Code Global (62991) Diagnoses Status post laparoscopic cholecystectomy Z90.49
[2024-10-25 13:39] VITALS: BP 127/67; PULSE 94
--- OUTSIDE RECORDS SUMMARY | 2024-10-25 16:14 | XMS_ITS | Clinical Summary ---
Author Organization [facility] Address [address] [place] [id number] Care Team Providers Care Sprinkler Tender Name Role Phone Unavailable Primary Care Provider [...] and Td Vaccines Adult 2013 COVID-19 Vaccine (2023-2 5 season) 2024 Influenza Vaccine (Season Ended) 2025 HIB Vaccines Aged Out No longer eligi [...]
--- OUTSIDE RECORDS SUMMARY | 2024-10-25 16:14 | XMS_ITS | Clinical Summary ---
Author Organization [facility] ity Address [address] [place] [address] Care Team Providers Care Plastic Boat Buffer Name Role Phone Wade Spencer MD Primary Care Provider [phone] Allergies Active Allergy Reactions Criticality Noted Date Comments Sulfa (Sulfonamide Antibiotics) Rash 11/12 Active Problems Problem Noted Date Diagnosed Date Seizures (CMS/[facility] V24, [facility] V28) 12/09/2017 Overview (07/04/2024): Since 18 yrs old [...] Influencers of Health Screening 06/14/2022 COVID-19 Vaccine ( - 2023-2 5 season) 2024 Influenza Vaccine (Season Ended) [...] age to complete this topic Meningococcal B Vaccine Aged Out No l onger eligible based on patient's age to complete [...] age to complete this topic Care Teams Plastic Boat Buffer Relationship Specialty Start Date End Date Wade Spencer MD PCP - General Internal Medicine 05/08/20
== END 2024-10-25 14:01 | disposition home or self-care (01) ==
LOC: HO.HGS 13:19
PROVIDERS: Visit Provider Surgery
DX: Z90.49 Acquired absence of other specified parts of digestive tract (principal)
CPT/HCPCS: 99024

== ENCOUNTER → 2024-10-25 13:19 | Outpatient (BNVA) | payer OTHER, SELFPAY | PROVIDERS: Visit Provider Surgery | DX: Z09 Encounter for follow-up examination after completed treatment for conditions other than malignant neoplasm (principal); Z90.49 Acquired absence of other specified parts of digestive tract | CPT/HCPCS: 99212 ==

== ENCOUNTER 2024-10-29 18:02 | Emergency (ER) | payer OTHER, SELFPAY ==
--- NOTE | ~2024-10-29 | CT_ITS ---
CLINICAL HISTORY: upper abdominal pain, recent cholecystectomy CT abdomen and pelvis with contrast Comparison: 02/12/2024 Findings: Lung bases clear. No acute bony abnormalities. Liver and spleen within normal limits. Pancreas and adrenal glands unremarkable. Cholecystectomy. No fluid collection. No significant focal renal abnormalities. No renal stones or hydronephrosis. Abdominal aorta is normal in caliber. No free fluid or adenopathy in the pelvis. No diverticulitis. Appendix unremarkable. Moderate stool in rectal vault. Impression: No acute process This document has been electronically signed by: Bartolo Prado MD on 10/29/2024 19:53:18
[2024-10-29 18:12] VITALS: BP 119/82; BP 150/96; PULSE 81; PULSE 96; RESP 20; TEMP 36.8; O2SAT 95; BMI 30.4
--- NOTE | 2024-10-29 18:22 | ED_ITS ---
HPI - General Adult General Chief complaint: Nausea/Vomiting/Diarrhea Stated complaint: midline epigastric pain, vomitting bloody stool Time Seen by Provider: 10/29/24 18:12 Source: patient, RN notes reviewed and old records reviewed Mode of arrival: EMS Limitations: no limitations History of Present Illness ED Provider: Ruthy SOL narrative: 29-year-old male past medical history significant for cyclic vomiting syndrome, external hemorrhoids, recent cholecystectomy, substance abuse on methadone, presents for evaluation abdominal pain Patient had a laparoscopic cholecystectomy with Dr. Harris on 10/11/2024, 18 days ago He reports he was doing well postop until 2 days ago he developed severe upper abdominal pain with persistent nausea and vomiting. He admits that he continues to smoke marijuana occasionally but decreased his usage He reports that he feels constipated and has had bloody stool Denies any rectal pain Denies any fevers or chills. He followed up with Dr. Harris in the office 4 days ago and at the time had no symptoms Denies any other abdominal surgery Related Data Home Medications ?Medication ?Instructions ?Recorded ?Confirmed methadone 10 mg/mL oral 103 mg PO DAILY 10/10/24 10/25/24 concentrate (Methadone Intensol) Previous Rx's ?Medication ?Instructions ?Recorded diphenhydramine HCl 25 mg capsule 50 mg (2 x 25 mg) PO Q6H PRN 03/18/24 headache, nausea, vomiting #20 caps docusate sodium 100 mg capsule 100 mg PO BID #30 caps 10/11/24 (Colace) ibuprofen 600 mg tablet 600 mg PO Q6H PRN pain #30 tabs 10/11/24 Allergies Allergy/AdvReac Type Severity Reaction Status Date / Time Sulfa (Sulfonamide Allergy Mild RASH Verified 10/29/24 18:14 Antibiotics) [SULFA (SULFONAMIDE ANTIBIOTICS)] Review of Systems 2 Constitutional: Constitutional: Denies body ache(s), Denies chills, Denies fever(s) and Denies headache(s) Eyes: Eyes: Denies blurry vision ENT: Denies vertigo, Denies dizziness and Denies headache(s) Cardiovascular: Cardiovascular: Denies chest pain and Denies dyspnea Respiratory: Respiratory: Denies cough and Denies dyspnea Gastrointestinal: Gastrointestinal: Reports abdominal pain, Reports hematochezia, Denies change in stool character, Denies coffee ground emesis, Reports constipation, Denies fecal incontinence, Denies diarrhea, Denies loose stools, Reports nausea and Reports vomiting Musculoskeletal: Musculoskeletal: Denies back pain Integumentary/Breasts: Skin/Breast: Denies rash Neurologic: Denies vertigo, Denies dizziness and Denies headache(s) Psychiatric: Psychiatric: Denies anxiety [facility] Past Medical History Medical History (Updated 10/29/24 @ 18:30 by Sergio Bliss) Kidney stones Surgical History (Updated 10/21/24 @ 15:13 by WALTER Hope) Status post laparoscopic cholecystectomy (10/11/24) Social History Social History Household Members: Spouse Housing: Apartment Do you presently have visiting nurse or other home services: No Alcohol intake: never Patient Tobacco Use Status: Current everyday Tobacco user e-Cigarette/Vaping Use: Currently Using Second Hand Smoke Exposure: No Substance Use Type: Marijuana Advance Directives: No Advance Directives Information Provided: No service: No Physical Exam ED Vital Signs: Vital Signs - 24 hr 10/29/24 18:12 Temperature 98.3 F Pulse Rate 96 Respiratory Rate 20 Blood Pressure 119/82 Pulse Oximetry 95 Oxygen Delivery Method Room Air BMI result Body Mass Index 30.4 Const General: healthy appearing, comfortable, no acute distress, alert and awake Nutritional Appearance: well nourished Orientation/consciousness: patient oriented x3 HENMT Head: Yes normocephalic and Yes atraumatic Eyes Eyelids: Yes eyelids normal Conjunctivae: conjunctivae normal Sclerae: sclerae normal Corneas: corneas normal Pupils: Equal, round and reactive pupils present EOM: EOMs intact bilaterally Neck Neck: Yes full ROM Resp Effort & Inspection: normal respiratory effort, able to speak in complete sentences and not labored GI Other: Surgical incisions appear well healed. No erythema, No induration no dehiscence Inspection: No distended Palpation (GI): Soft to palpation, not firm, Tenderness to palpation present (GI) in the LLQ, in the RLQ, in the LUQ and in the RUQ, Guarding due to palpation present (GI) (Diffuse voluntary guarding) and not rigid Skin General skin exam: elasticity normal Neuro General: patient oriented x3 Cranial nerves: Yes Equal, round and reactive pupils present and Yes Bilaterally intact EOM present Cognition (Neuro): normal cognition Extrem Other: Moving all extremities well without any obvious deformities Course Reevaluation(s) Reevaluation #1: The patient continuing to vomit after receiving Zofran, I ordered an EKG to check his QTC which is within normal limits. I then ordered Haldol 2.5 mg IV. This had resolution of the patient's vomiting. His CT scan did not show any concerning findings. I discussed with the patient given his recurrent episodes of vomiting we will have him follow up with GI Time: 21:11 Medications Administered Discontinued Medications Generic Name Dose Route Start Last Admin Trade Name Freq PRN Reason Stop Dose Admin Haloperidol Lactate 2.5 mg 10/29/24 19:23 10/29/24 19:36 Haloperidol Lactate 5 Mg/Ml Vial IVPUSH 10/29/24 19:24 2.5 mg STAT STA Administration Sodium Chloride 1,000 mls @ 999 mls/hr 10/29/24 18:30 10/29/24 18:24 Ns IV 10/29/24 19:30 999 mls/hr .Q1H1M KONSTANTIN Administration Iohexol 100 ml 10/29/24 19:20 10/29/24 19:23 Iohexol 350 Mg/Ml 100 Ml Infus..Btl IV 10/29/24 19:21 85 ml ONCE ONE Administration Morphine Sulfate 4 mg 10/29/24 18:20 10/29/24 18:29 Morphine Sulfate 4 Mg/Ml Cartridge IVPUSH 10/29/24 18:21 4 mg ONCE ONE Administration Protocol Ondansetron HCl 4 mg 10/29/24 18:20 10/29/24 18:28 Ondansetron Hcl 4 Mg/2 Ml Vial IVPUSH 10/29/24 18:21 4 mg ONCE ONE Administration Medical Decision Making Medical Decision Making MDM Narrative: For evaluation of diffuse abdominal pain. He reports his pain is worse in the upper abdomen. He was diffuse tenderness with voluntary guarding. His abdomen is soft, nondistended. His surgical wounds appear well healed. Plan for labs, CT scan of the abdomen pelvis. He was afebrile. I have a lower suspicion for postop complication as his surgery was 18 days ago and he was asymptomatic until 2 days ago. His symptoms may be related to cannabis hyperemesis syndrome. Pain with morphine and nausea and vomiting with Zofran. Differential Diagnosis Differential Diagnoses: The differential diagnosis associated with the presentation includes Cyclic vomiting syndrome Intra-abdominal abscess Gastroenteritis Postop pain Gastritis Antonia-Miller tear Admission/Observation Consideration of admission/observation: Escalation of care including admission/observation considered Lab Data MDM Lab Attestation statement: I reviewed the patient's lab results. No leukocytosis or anemia. Normal platelet count. No significant electrolyte abnormalities warranting intervention. 10/29/24 18:21 10/29/24 18:21 Labs: Lab Results 10/29/24 Range/Units 18:21 WBC 9.7 (4.8-10.8) X10*3/uL RBC 5.29 (4.60-5.80) X10*6/uL Hgb 14.7 (14.0-18.0) g/dl Hct 41.4 L (42.0-52.0) % MCV 78.3 L (80.0-98.0) fL MCH 27.8 (27.0-33.0) pg MCHC 35.5 (31.0-36.0) g/dl RDW 12.8 (11.0-16.0) % Plt Count 247 (160-400) X10*3/uL MPV 9.3 L (9.4-12.4) fL Immature Gran % (Auto) 0.3 (0.0-0.4) % Neut % (Auto) 80.0 H (45-73) % Lymph % (Auto) 16.1 L (20-40) % Custer % (Auto) 3.4 (2-11) % Eos % (Auto) 0.1 (0-4) % Baso % (Auto) 0.1 (0-2) % Lymph # (Auto) 1.6 (1.2-4.9) X10*3/uL Custer # (Auto) 0.3 (0.1-1.2) X10*3/uL Eos # (Auto) 0.0 (0.0-0.4) X10*3/uL Baso # (Auto) 0.0 (0.0-0.2) X10*3/uL Abs Immat Gran (auto) 0.03 (0.00-0.03) X10*3/uL Absolute Neuts (auto) 7.8 (2.0-8.3) x10*3/uL Absolute Nucleated RBC 0.000 (0.0-0.012) X10*3/uL Nucleated RBC % (auto) 0.0 (0.0-0.2) /100WBC Sodium 139 (135-145) mmol/L Potassium 3.5 (3.3-5.1) mmol/L Chloride 104 (96-108) mmol/L Carbon Dioxide 20 L (22-29) mmol/L Anion Gap 19 (12-20) BUN 11 (9-16) mg/dL Creatinine 0.78 (0.5-1.4) mg/dL Estim Creat Clear Calc 165.9 Estimated GFR > 60 Random Glucose 130 H (60-115) mg/dL Calcium 10.0 (8.4-10.2) mg/dL Total Bilirubin 0.7 (0.0-1.0) mg/dL Direct Bilirubin 0.2 (0.0-0.5) mg/dL AST 32 (5-37) U/L ALT 43 H (0-40) U/L Alkaline Phosphatase 94 (39-117) U/L Total Protein 8.1 H (6.5-8.0) g/dL Albumin 4.6 (3.5-5.0) g/dL Lipase 7 L (8-78) U/L Influenza Type A (PCR) NEGATIVE (Negative) Influenza Type B (PCR) NEGATIVE (Negative) RSV RNA Qual (PCR) NEGATIVE (Negative) SARS-CoV-2 RNA (RT-PCR) NEGATIVE (Negative) Independent Interpretation I performed an independent interpretation of an: CT Scan Interpretation: No obvious fluid collection or infiltrate Radiology Impression Discussion of test interpretation with radiology: I have reviewed the radiologist's reading. Radiologist Impression: Findings: Lung bases clear. No acute bony abnormalities. Liver and spleen within normal limits. Pancreas and adrenal glands unremarkable. Cholecystectomy. No fluid collection. No significant focal renal abnormalities. No renal stones or hydronephrosis. Abdominal aorta is normal in caliber. No free fluid or adenopathy in the pelvis. No diverticulitis. Appendix unremarkable. Moderate stool in rectal vault. Impression: No acute process This document has been electronically signed by: Bartolo Prado MD on 10/29/2024 19:53:18 Discharge Plan Discharge Clinical Impression: Abdominal pain Patient Disposition: Home, Self-Care Instructions: Cyclic Vomiting Syndrome (ED) Additional Instructions: Your workup in the ER today was reassuring. Follow-up with your primary doctor. You may also follow-up with GI at the number provided. You may benefit from an outpatient endoscopy. I think your symptoms may be related to marijuana use Prescriptions: No Action diphenhydramine HCl 25 mg capsule 50 mg PO Q6H PRN (Reason: headache, nausea, vomiting) Qty: 20 0RF methadone [Methadone Intensol] 10 mg/mL Concentrate 103 mg PO DAILY docusate sodium [Colace] 100 mg capsule 100 mg PO BID Qty: 30 0RF ibuprofen 600 mg tablet 600 mg PO Q6H PRN (Reason: pain) Qty: 30 0RF Referrals: Landon Gerber MD [Physician] - (recurrent vomiting) Print Language: Luxembourgish
[2024-10-29] MEDS: 0.9 % Sodium Chloride 1,000 ML 999 ML IV (18:24)
[2024-10-29 18:28] LABS: MANUAL DIFF FLAG NO
[2024-10-29] MEDS: ondansetron HCL 4 MG/2 ML VIAL IVPUSH (18:28)
[2024-10-29 18:29] LABS: Basophils Percent Auto 0.1 % (0-2); Eosinophils Percent Auto 0.1 % (0-4); Hematocrit 41.4 % (42.0-52.0); Hemoglobin 14.7 g/dl (14.0-18.0); Imm Gran Abs Auto 0.03 X10*3/uL (0.00-0.03); Imm Gran Pct Auto 0.3 % (0.0-0.4); Lymphocytes Absolute Auto 1.6 X10*3/uL (1.2-4.9); Lymphocytes Percent Auto 16.1 % (20-40); Mean Corpuscular HGB Conc 35.5 g/dl (31.0-36.0); Mean Corpuscular Hemoglobin 27.8 pg (27.0-33.0); Mean Corpuscular Volume 78.3 fL (80.0-98.0); Mean Platelet Volume 9.3 fL (9.4-12.4); Monocytes Absolute Auto 0.3 X10*3/uL (0.1-1.2); Monocytes Percent Auto 3.4 % (2-11); Neutrophils Absolute Auto 7.8 x10*3/uL (2.0-8.3); Platelet Count 247 X10*3/uL (160-400); Red Blood Count 5.29 X10*6/uL (4.60-5.80); Red Cell Distribution Width 12.8 % (11.0-16.0); White Blood Count 9.7 X10*3/uL (4.8-10.8)
[2024-10-29] MEDS: Morphine Sulfate 4 MG/ML CARTRIDGE IVPUSH (18:29)
--- OUTSIDE RECORDS SUMMARY | 2024-10-29 18:41 | XMS_ITS | Clinical Summary ---
Author Organization [employer] Address [address] [place] [id number] Care Team Providers Care Deli Worker Name Role Phone Unavailable Primary Care Provider [...]
--- OUTSIDE RECORDS SUMMARY | 2024-10-29 18:41 | XMS_ITS | Clinical Summary ---
Author Organization [facility] ity Address [address] [place] [address] Care Team Providers Care Family Specialist Name Role Phone Wade Spencer MD Primary Care Provider [phone] Allergies Active Allergy Reactions Criticality Noted Date Comments Sulfa (Sulfonamide Antibiotics) Rash 11/12 Active Problems Problem Noted Date Diagnosed Date Seizures (CMS/[facility] V24, [facility] V28) 12/09/2017 Overview (07/04/2024): Since 18 yrs [...] age to complete this topic Care Teams Family Specialist Relationship Specialty Start Date End Date Wade Spencer MD PCP - General Internal Medicine 05/08/20
[2024-10-29 18:47] LABS: Alanine Aminotransferase 43 U/L (0-40); Albumin Level 4.6 g/dL (3.5-5.0); Alkaline Phosphatase 94 U/L (39-117); Anion Gap 19 (12-20); Aspartate Amino Transferase 32 U/L (5-37); Bilirubin Direct 0.2 mg/dL (0.0-0.5); Bilirubin Total 0.7 mg/dL (0.0-1.0); Blood Urea Nitrogen 11 mg/dL (9-16); Carbon Dioxide 20 mmol/L (22-29); Chloride 104 mmol/L (96-108); Creatinine Clr Calc Pharmacy 165.9; Estimated Glomerular Filt Rate > 60; Glucose Random 130 mg/dL (60-115); Lipase 7 U/L (8-78); Potassium 3.5 mmol/L (3.3-5.1); Sodium 139 mmol/L (135-145); Total Protein 8.1 g/dL (6.5-8.0)
[2024-10-29 19:13] LABS: Influenza A PCR NEGATIVE (Negative); Influenza B PCR NEGATIVE (Negative); Resp Syncy Virus RNA Qual PCR NEGATIVE (Negative); SARS COV2 PCR INHOUSE NEGATIVE (Negative)
--- NOTE | 2024-10-29 19:18 | PC.NURSE ---
assumed care of pt at 1900. Pt ambulating to imaging at this time. awaiting results and urine sample.
[2024-10-29] MEDS: iohexoL 350 MG/ML 100 ML INFUS..BTL IV (19:23)
--- NOTE | 2024-10-29 19:24 | ECG_ITS ---
Test Reason : CHECK QTC Blood Pressure : */* mmHG Vent. Rate : 67 BPM Atrial Rate : 67 BPM P-R Int : 138 ms QRS Dur : 78 ms QT Int : 442 ms P-R-T Axes : 26 83 49 degrees QTcB Int : 467 ms Normal sinus rhythm Normal ECG When compared with ECG of 30-Aug-2024 15:03, Nonspecific T wave abnormality no longer evident in Inferior leads Nonspecific T wave abnormality no longer evident in Anterior leads Referred By: Sergio Bliss Electronically Signed By: NADEEN LOPEZ MD
[2024-10-29] MEDS: Haloperidol Lactate 5 MG/ML VIAL 2.5 MG IVPUSH (19:36)
[2024-10-29 21:53] VITALS: BP 119/93; PULSE 107; RESP 18; TEMP 37.3; O2SAT 97
== END 2024-10-29 21:54 | disposition home or self-care (01) ==
PROVIDERS: Emergency Provider Internal Medicine
DX: R10.10 Upper abdominal pain, unspecified (principal); R11.2 Nausea with vomiting, unspecified; F11.20 Opioid dependence, uncomplicated; Z03.818 Encounter for observation for suspected exposure to other biological agents ruled out
CPT/HCPCS: 0241U; 74177; 80048; 80076; 83690; 85025; 93005; 96374; 96375; 99283; 99284; J1630; J2270; J2405; Q9967

== ENCOUNTER → 2024-10-29 18:20 | Outpatient (BNV) | payer OTHER, SELFPAY | PROVIDERS: Emergency Provider Internal Medicine; Visit Provider Radiology Diagnostic Radiology | DX: R10.10 Upper abdominal pain, unspecified (principal) | CPT/HCPCS: 74177 ==

== ENCOUNTER → 2024-10-29 19:24 | Outpatient (BNV) | payer OTHER, SELFPAY | PROVIDERS: Emergency Provider Internal Medicine; Visit Provider Internal Medicine Cardiovascular Disease | DX: Z13.6 Encounter for screening for cardiovascular disorders (principal) | CPT/HCPCS: 93010 ==

== ENCOUNTER 2025-06-21 12:39 | Outpatient (AMB) | payer OTHER, SELFPAY ==
[2025-06-21 12:41] VITALS: BP 138/78; PULSE 84; RESP 18; O2SAT 98; BMI 34.3
--- NOTE | 2025-06-21 12:41 | MHC.PC.OV ---
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 Data Recovery Planner Required: No Accompanied by: Self / Same As Patient Allergies Sulfa (Sulfonamide Antibiotics) (SULFA (SULFONAMIDE ANTIBIOTICS)) Allergy (Mild, Verified 06/21/25 13:10) RASH Medication List - Last Reconciled 06/21/25 by JOSÉ MIGUEL Palma diphenhydramine HCl 50 mg (2 x 25 mg) PO Q6H PRN ibuprofen 600 mg PO Q6H PRN methadone (Methadone Intensol) 103 mg PO DAILY Tobacco use date assessed: 06/21/25 Dental Screening Dental Screen Date: 06/21/25 Did you have a dental visit in the last 12 months?: No Did you have a dental problem in the last 6 months where you did not have access to dental care?: No Was dental information given to patient?: No HPI medical issues, 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 HPI Details Previous PCP: None since he was a child Last visit:n/a Last PE:a long time ago Specialist: no OBGYN:n/a Past medical history: cholecystectomy, constipation, Medications: Omeprazole, ibuprofen, diphenhydramine, MiraLax Family HX:father has prostate, paternal grandfather has cancer, paternal grandmother breast cancer Problem: The patient is a 29 year old male establishing primary care for chronic stomach issues and a general health check-up. He has not had a primary care doctor since he was a child. For the past two years, the patient has experienced intermittent episodes of waking up in the morning, sometimes as early as 3:00 or 4:00 AM, with severe nausea and vomiting of greenish bile. These episodes are not associated with abdominal pain and can sometimes be incapacitating for the entire day. He has had multiple emergency department visits for this issue, where he was given ondansetron. Due to the vomiting, his gallbladder was found to be inflamed and was surgically removed earlier this year, but this did not resolve the symptoms. He also reports symptoms of acid reflux, which is helped by taking tnky-nbb-jgobweo omeprazole 20 mg daily. The patient also reports chronic constipation, sometimes going two to three days without a bowel movement. He occasionally experiences rectal bleeding, particularly when constipated. About a year and a half ago, he had a prolapsed hemorrhoid that was surgically removed. He takes MiraLax as needed for constipation. Past medical history is notable for opioid use disorder, and he has been clean for three and a half years, currently on methadone maintenance therapy. He reports using marijuana, having obtained a medical card. He quit for six months, but his vomiting symptoms persisted. He does not smoke cigarettes or drink alcohol. His water intake is low, at two to three bottles per day, and he drinks Gatorade frequently. Family history is significant for his father with prostate cancer, paternal grandmother with breast cancer, and paternal grandfather cancer. His son has bilateral kidney cancer (Wilms tumor). [facility] Medical History Cyclic vomiting syndrome Constipation Substance abuse Kidney stones Surgical History External hemorrhoid Status post laparoscopic cholecystectomy (10/11/24) Family History Father Prostate cancer Paternal Grandfather Cancer Paternal Grandmother Breast cancer in situ Son Neuroblastoma Social History Household Members: Spouse Housing: Apartment Do you presently have visiting nurse or other home services: No Alcohol intake: never Patient Tobacco Use Status: Current everyday Tobacco user e-Cigarette/Vaping Use: Currently Using Second Hand Smoke Exposure: No Substance Use Type: Marijuana service: No Questionnaire PHQ-9 Over the last 2 weeks, how often have you been bothered by any of the following problems? 1. Little interest or pleasure in doing things: not at all 2. Feeling down, depressed, or hopeless: not at all 3. Trouble falling or staying asleep, or sleeping too much: not at all 4. Feeling tired or having little energy: not at all 5. Poor appetite or overeating: not at all 6. Feeling bad about yourself - or that you are a failure or have let yourself or your family down: not at all 7. Trouble concentrating on things, such as reading the newspaper or watching television: not at all 8. Moving or speaking so slowly that other people could have noticed. Or the opposite - being so fidgety or restless that you have been moving around a lot more than usual: not at all 9. Thoughts that you would be better off or of hurting yourself in some way: not at all Total score: 0 Depression Screening Interpretation: Negative Depression Screening Done: Yes 93114 - PHQ-9 Billing: Yes Source: Developed by Drs. Ap Pruitt, Milana Ron, Thomas Pérez and colleagues, with an educational ludy from [employer]. Thrive Questionnaire Date Thrive assessed: 06/21/25 I am a: Patient What is your living situation today?: I have a steady place to live Within the past 12 months, did the food you bought not last and you didn't have the money to get more?: Never true Within the past 12 months, did you worry whether your food would run out before you got money to buy more?: Sometimes True Do you have trouble paying for medicines?: No Do you have trouble getting transportation to medical appointments?: No Do you have trouble paying your heating and electricity bill?: No Do you have trouble taking care of your child, family member or friend?: No Do you have trouble with day-to-day activities such as bathing, preparing meals, shopping, managing finances, etc.?: No Are you currently unemployed and looking for a job?: No Are you interested in more education?: No Please select the resources that you would like help with: None Currently or been in a relationship where the following occur: No concerns reported THRIVE Score: 1 AUDIT C Alcohol Use Questionnaire (AUDIT-C) 1. How often do you have a drink containing alcohol?: Never Total Score: 0 SAMUEL-7 AMB Questionnaire SAMUEL-7 Date SAMUEL - 7 assessed: 06/21/25 Feeling nervous, anxious, or on edge: 1 = Several days Not being able to stop or control worryin = Several days Worrying too much about different things: 1 = Several days Trouble relaxin = Several days Being so restless that it is hard to sit still: 1 = Several days Becoming easily annoyed or irritable: 0 = Not at all Feeling afraid as if something awful might happen: 0 = Not at all Total SAMUEL-7 score (0-4 normal; 5-9 mild; 10-14 moderate; 15-21 severe): 5 Source: Developed by Drs. Ap Pruitt, Milana Ron, Thomas Pérez and colleagues, with an educational ludy from [employer]. SAMUEL-7 Assessment Billing SAMUEL-7 Assessment Tool: SAMUEL-7 Assessment 56376 Review of Systems Const Details: - Constitutional: Denies dizziness. - Gastrointestinal: Reports intermittent nausea and vomiting of green bile, occurring mostly in the mornings. - Reports chronic constipation and occasional rectal bleeding with constipation. - Reports acid reflux. - Denies abdominal pain. - Respiratory: Denies any issues with breathing. - Neurological: Denies headaches, numbness or tingling. - Musculoskeletal: Reports occasional back pain, for which he takes ibuprofen about once a week. Denies headache(s) Eyes Denies loss of vision ENT Denies vertigo, Denies dizziness, Denies headache(s) and Denies sore throat Card Denies chest pain, Denies leg edema and Denies lightheadedness Resp Denies cough, Denies hemoptysis and Denies wheezing GI Denies abdominal pain, Denies melena, Reports constipation, Reports heartburn, Denies diarrhea, Reports nausea (Intermittent) and Reports vomiting (Intermittent) Denies dysuria, Denies urinary frequency and Denies urinary urgency Musc Reports back pain (low back pain intermittently), Denies arthralgias, Denies joint swelling, Denies numbness and Denies tingling Neuro Denies Abnormal speech present, Denies behavioral changes, Denies vertigo, Denies dizziness, Denies headache(s), Denies loss of vision, Denies memory loss, Denies numbness and Denies tingling Psych Denies anxiety, Denies behavioral changes, Denies depression, Denies memory loss and Denies panic attacks Alexi/Lymph Denies easy bleeding and Denies easy bruising Aller/Immun Denies wheezing Physical exam (Primary Care) Vital Signs: Last Vital Signs Pulse 84 06/21/25 12:41 Resp 18 06/21/25 12:41 BP 138/78 06/21/25 12:41 Pulse Ox 98 06/21/25 12:41 Oxygen Delivery Method Room Air 06/21/25 12:41 BMI result Body Mass Index 34.3 Tobacco/Smoking Status: Tobacco use Status Tobacco use date assessed 06/21/25 06/21/25 12:42 Patient Tobacco Use Status Current everyday Tobacco 06/21/25 12:42 e-Cigarette/Vaping Use Currently Using 06/21/25 12:42 PHQ-9: PHQ-9 Score PHQ-9: Total score 0 06/21/25 12:42 Depression Screening Interpretation: Negative Thrive Assessment: Date of Thrive Assessment Date Thrive assessed 06/21/25 12 12:42 Currently or been in a relationship where the following occur: No concerns reported Const Other: - General: Appears well. - Oropharynx: Appears normal on visual inspection. - Neck: No lymphadenopathy on palpation. - Respiratory: Lungs are clear to auscultation bilaterally. - Abdomen: Soft, non-tender to palpation. - Patient exhibits significant ticklishness with guarding and grimacing on light touch, but denies pain. General: healthy appearing, no acute distress, alert and awake Nutritional Appearance: well nourished Orientation/consciousness: oriented to person, oriented to place and oriented to time HENMT Ears: TM's normal bilaterally General nose exam: Normal nasal mucous membranes and turbinates present Eyes Conjunctivae: conjunctivae normal Sclerae: sclerae normal Pupils: Equal, round and reactive pupils present Neck Neck: Yes no lymphadenopathy and Yes no JVD Thyroid: Thyroid normal Carotids: no bruits Resp Effort & Inspection: normal respiratory effort and not tachypneic Auscultation: no crackles, no rales, no rhonchi and no wheezes Cardio Rate: regular rate Rhythm: regular rhythm Heart sounds: no murmurs and normal S1 and S2 GI Palpation (GI): Soft to palpation, nontender, no hepatomegaly and no splenomegaly Auscultation: normal bowel sounds General: Yes no CVA tenderness Back/Spine/Pelvis Back: no CVA tenderness Skin General skin exam: no rashes or lesions noted and dry skin Neuro General: oriented to person, oriented to place and oriented to time Cranial nerves: Yes Equal, round and reactive pupils present Speech: No Abnormal speech present Gait exam (Neuro): Normal gait present Motor exam (neuro): no tremor noted Extrem Right upper extremity: full ROM Left upper extremity: full ROM Right lower extremity: full ROM; no edema Left lower extremity: full ROM; no edema Psych Mental Status: mental status grossly normal Speech and movement: Normal speech and movement present Affect: normal affect Attitude: cooperative Thought process: Normal thought process present Coding Level of Care Code New Pt Level 4 (56687) Diagnoses Substance abuse F19.10 Constipation, unspecified constipation type K59.00 Constipation type: unspecified constipation type Cyclic vomiting syndrome R11.15 Gastroesophageal reflux disease, unspecified whether esophagitis present K21.9 Esophagitis presence: esophagitis presence not specified Additional Codes PHQ-9 - 75055 - PHQ-9 Billing: Yes ([id number]) SAMUEL-7 Assessment Billing - SAMUEL-7 Assessment Tool: SAMUEL-7 Assessment 21136 ([id number]) Time Spent (min) 36 Assessment & Plan Assessment & Plan (1) Substance abuse: Code(s): F19.10 - Other psychoactive substance abuse, uncomplicated Category: Medical Plan: Patient is on methadone 103 mg daily. Follow up with methadone Clinic as scheduled (2) Constipation: Code(s): K59.00 - Constipation, unspecified Category: Medical Qualifiers: Constipation type: unspecified constipation type Qualified Code(s): K59.00 - Constipation, unspecified Plan: The patient reports infrequent bowel movements and associated rectal bleeding. Counseling was provided on increasing daily water intake to at least six bottles and taking MiraLax daily, rather than as needed, to maintain regularity. (3) Cyclic vomiting syndrome: Code(s): R11.15 - Cyclical vomiting syndrome unrelated to migraine Category: Medical Plan: The patient's chronic nausea and bilious vomiting, which persists despite a cholecystectomy, warrants further investigation. Cannabinoid hyperemesis syndrome is a strong consideration given his marijuana use, although symptoms persisted during a six-month period of abstinence. A referral will be made to a pocket cutter for further evaluation, which may include a colonoscopy. In the interim, ondansetron orally disintegrating tablets will be prescribed for as-needed use for severe nausea. (4) GERD (gastroesophageal reflux disease): Code(s): K21.9 - Gastro-esophageal reflux disease without esophagitis Category: Medical Qualifiers: Esophagitis presence: esophagitis presence not specified Qualified Code(s): K21.9 - Gastro-esophageal reflux disease without esophagitis Plan: The patient reports some relief of his symptoms with scaz-avj-cwqvtjy omeprazole 20 mg. To better manage his symptoms, a prescription for omeprazole 40 mg daily will be provided, to be taken in the morning before eating. Orders: Orders Hepatitis A,B,C Profile Today D64.9 - Anemia, unspecified, R11.2 - Nausea with vomiting, unspecified, R74.8 - Abnormal levels of other serum enzymes, Z00.00 - Encounter for general adult medical examination without abnormal findings Complete Blood Count Auto Diff Today D64.9 - Anemia, unspecified, R11.2 - Nausea with vomiting, unspecified, R74.8 - Abnormal levels of other serum enzymes, Z00.00 - Encounter for general adult medical examination without abnormal findings TSH reflex Free T4 Today D64.9 - Anemia, unspecified, R11.2 - Nausea with vomiting, unspecified, R74.8 - Abnormal levels of other serum enzymes, Z00.00 - Encounter for general adult medical examination without abnormal findings IRON PROFILE Today D64.9 - Anemia, unspecified, R11.2 - Nausea with vomiting, unspecified, R74.8 - Abnormal levels of other serum enzymes, Z00.00 - Encounter for general adult medical examination without abnormal findings Ferritin Today D64.9 - Anemia, unspecified, R11.2 - Nausea with vomiting, unspecified, R74.8 - Abnormal levels of other serum enzymes, Z00.00 - Encounter for general adult medical examination without abnormal findings Vitamin B12 and Folate Today D64.9 - Anemia, unspecified, R11.2 - Nausea with vomiting, unspecified, R74.8 - Abnormal levels of other serum enzymes, Z00.00 - Encounter for general adult medical examination without abnormal findings Comprehensive [place]. Panel Fast Today D64.9 - Anemia, unspecified, R11.2 - Nausea with vomiting, unspecified, R74.8 - Abnormal levels of other serum enzymes, Z00.00 - Encounter for general adult medical examination without abnormal findings Lipid Panel Today D64.9 - Anemia, unspecified, R11.2 - Nausea with vomiting, unspecified, R74.8 - Abnormal levels of other serum enzymes, Z00.00 - Encounter for general adult medical examination without abnormal findings UA CC w/rflx Micro + Cult Today D64.9 - Anemia, unspecified, R11.2 - Nausea with vomiting, unspecified, R74.8 - Abnormal levels of other serum enzymes, Z00.00 - Encounter for general adult medical examination without abnormal findings Vitamin D 25-OH Total Today D64.9 - Anemia, unspecified, R11.2 - Nausea with vomiting, unspecified, R74.8 - Abnormal levels of other serum enzymes, Z00.00 - Encounter for general adult medical examination without abnormal findings Referrals Gastroenterology Referral K21.9 - Gastro-esophageal reflux disease without esophagitis, R11.15 - Cyclical vomiting syndrome unrelated to migraine Medications: New omeprazole 40 mg PO DAILY 90 caps 3RF ondansetron 4 mg PO Q6H PRN 30 tabs 1RF nausea and vomiting
== END 2025-06-21 13:45 | disposition home or self-care (01) ==
LOC: HO.HMCH 12:40
DX: F19.10 Other psychoactive substance abuse, uncomplicated (principal); K59.00 Constipation, unspecified; R11.15 Cyclical vomiting syndrome unrelated to migraine; K21.9 Gastro-esophageal reflux disease without esophagitis

== ENCOUNTER → 2025-06-21 12:39 | Outpatient (BNVA) | payer OTHER, SELFPAY | DX: K21.9 Gastro-esophageal reflux disease without esophagitis (principal); F19.10 Other psychoactive substance abuse, uncomplicated; K59.00 Constipation, unspecified; R11.15 Cyclical vomiting syndrome unrelated to migraine; Z13.31 Encounter for screening for depression; Z13.39 Encounter for screening examination for other mental health and behavioral disorders | CPT/HCPCS: 96127; 99202 ==